=== PATIENT | male | born 1935 | race Caucasian/White ===

== ENCOUNTER → 2016-10-28 | Outpatient (CLI) | payer MEDICARE ==
[2016-10-28 10:56] LABS: ALT 27 U/L (21-72); AST 28 U/L (17-59); Alkaline Phosphatase 66 U/L (38-126); Anion Gap 7 mmol/L; Blood Urea Nitrogen 33 mg/dL (9-20); Calcium 8.9 mg/dL (8.4-10.2); Carbon Dioxide 27 mmol/L (22-30); Chloride 105 mmol/L (98-107); Cholesterol 140 mg/dL (<200); Glucose 79 mg/dL (74-99); HDL Cholesterol 52 mg/dL (40-60); Non-African American GFR(MDRD) >60 (>60 ml/min/1.73 sqM); Potassium 4.5 mmol/L (3.5-5.1); Sodium 139 mmol/L (137-145); Total Bilirubin 0.8 mg/dL (0.2-1.3); Total Protein 6.5 g/dL (6.3-8.2); Triglycerides 86 mg/dL (<150)
== END | disposition home or self-care (01) ==
LOC: LABWHC1 08:47
PROVIDERS: ATTEND Internal Medicine Interventional Cardiology
DX: E78.2 Mixed hyperlipidemia (principal)
CPT/HCPCS: 36415; 80053; 80061; 84443

== ENCOUNTER → 2017-03-30 | Outpatient (CLI) | payer MEDICARE ==
[2017-03-30 10:04] LABS: ALT 23 U/L (21-72); AST 22 U/L (17-59); Alkaline Phosphatase 66 U/L (38-126); Anion Gap 8 mmol/L; Blood Urea Nitrogen 25 mg/dL (9-20); Calcium 8.7 mg/dL (8.4-10.2); Carbon Dioxide 27 mmol/L (22-30); Chloride 106 mmol/L (98-107); Cholesterol 135 mg/dL (<200); Glucose 79 mg/dL (74-99); HDL Cholesterol 53 mg/dL (40-60); Non-African American GFR(MDRD) >60 (>60 ml/min/1.73 sqM); Sodium 141 mmol/L (137-145); Total Bilirubin 0.7 mg/dL (0.2-1.3); Total Protein 5.9 g/dL (6.3-8.2)
== END | disposition home or self-care (01) ==
LOC: LABWHC1 08:36
PROVIDERS: ATTEND Internal Medicine Interventional Cardiology
DX: E78.2 Mixed hyperlipidemia (principal)
CPT/HCPCS: 36415; 80053; 80061

== ENCOUNTER → 2017-10-26 | Outpatient (CLI) | payer MEDICARE ==
[2017-10-26 11:01] LABS: Albumin 3.5 g/dL (3.5-5.0); Calcium 8.7 mg/dL (8.4-10.2); Potassium 4.1 mmol/L (3.5-5.1); Total Bilirubin 0.8 mg/dL (0.2-1.3); Total Protein 5.5 g/dL (6.3-8.2)
== END | disposition home or self-care (01) ==
LOC: LABWHC1 09:50
PROVIDERS: ATTEND Internal Medicine Interventional Cardiology
DX: I25.5 Ischemic cardiomyopathy (principal); E78.2 Mixed hyperlipidemia
CPT/HCPCS: 36415; 80053; 80061; 84443

== ENCOUNTER → 2018-03-17 | Outpatient (CLI) | payer MEDICARE ==
[2018-03-17 12:06] LABS: Albumin 3.7 g/dL (3.5-5.0); Calcium 8.9 mg/dL (8.4-10.2); Potassium 4.6 mmol/L (3.5-5.1); Total Bilirubin 0.9 mg/dL (0.2-1.3); Total Protein 6.2 g/dL (6.3-8.2)
== END | disposition home or self-care (01) ==
LOC: LABWHC1 09:40
PROVIDERS: ATTEND Internal Medicine Interventional Cardiology
DX: E78.2 Mixed hyperlipidemia (principal)
CPT/HCPCS: 36415; 80053; 80061

== ENCOUNTER → 2018-10-25 | Outpatient (CLI) | payer MEDICARE | END | disposition home or self-care (01) | LOC: LABWHC1 09:14 | PROVIDERS: ATTEND Internal Medicine Interventional Cardiology | DX: E78.2 Mixed hyperlipidemia (principal) | CPT/HCPCS: 36415; 80061; 84450; 84460 ==

== ENCOUNTER → 2019-04-20 | Outpatient (CLI) | payer MEDICARE ==
--- NOTE | 2019-04-20 11:50 | XR ---
EXAMINATION TYPE: XR chest 2V DATE OF EXAM: 04/20/2019 COMPARISON: 02/01/2011 TECHNIQUE: PA and lateral views submitted. HISTORY: Cough FINDINGS: The lungs are clear and there is no pneumothorax, pleural effusion, or focal pneumonia. Surgical ch anges are seen and there is a double lead pacemaker. No overt failure. Arthropathy shoulders. Degener ative change of the spine. Suggestion of coronary artery stenting correlate clinically. Partial event ration right hemidiaphragm. IMPRESSION: 1. No acute process.
== END | disposition home or self-care (01) ==
LOC: RADXRMAIN 11:19
PROVIDERS: ATTEND Internal Medicine
DX: R05 Cough (principal)
CPT/HCPCS: 71046

== ENCOUNTER → 2019-05-02 | Outpatient (CLI) | payer MEDICARE ==
--- NOTE | 2019-05-02 13:29 | CT ---
EXAMINATION TYPE: CT sinus wo con DATE OF EXAM: 05/02/2019 COMPARISON: HISTORY: Chronic sinusitis, drainage, pressure CT DLP: 703.6 mGycm. Automated Exposure Control for Dose Reduction was Utilized. TECHNIQUE: CT scan of the sinuses is performed without contrast, axial images are obtained, coronal r eformatted images are also reviewed. FINDINGS: The paranasal sinuses are remarkable for extensive inflammatory change in the bilateral ma xillary sinus, ethmoid air cells, sphenoid sinus and frontal sinus. Abnormal soft tissue present at t he level of the ostiomeatal units bilaterally possible polyp along the middle terminated on the left measuring approximately 18 mm posteriorly as well as possibly anteriorly along the inferior turbinate measuring 12 mm, possibly the posterior aspect of the middle turbinate on the right towards the nasa l septum. Visualized portion of mastoid air cells show no abnormal opacification. The globes are intact bilate rally. Auditory ossicles show symmetric appearance. Bone mineralization is normal. 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
== END | disposition home or self-care (01) ==
LOC: RADCTMAIN 13:01
PROVIDERS: ATTEND Otolaryngology
DX: J32.4 Chronic pansinusitis (principal)
CPT/HCPCS: 70486

== ENCOUNTER → 2019-12-11 | Outpatient (CLI) | payer MEDICARE ==
[2019-12-11 17:53] LABS: African American GFR (CKD) 58.5 (60.0-200.0); Albumin 4.1 g/dL (3.80-4.90); Albumin/Globulin Ratio 2.41 (1.60-3.17); Anion Gap 6.3 mmol/L (4.00-12.00); BUN/Creat Ratio 20.77 Ratio (12.00-20.00); Calcium 8.8 mg/dL (8.7-10.3); Carbon Dioxide 26.7 mmol/L (21.6-31.8); Chol/HDL Ratio 2.57; Globulin 1.7 g/dL (1.6-3.3); Non-African American GFR(CKD) 50.5 (60.0-200.0); Potassium 4.5 mmol/L (3.5-5.5); Total Bilirubin 0.8 mg/dL (0.3-1.2); Total Protein 5.8 g/dL (6.2-8.2)
== END | disposition home or self-care (01) ==
LOC: LABWHC1 08:52
PROVIDERS: ATTEND Internal Medicine Interventional Cardiology
DX: E78.2 Mixed hyperlipidemia (principal)
CPT/HCPCS: 36415; 80053; 80061

== ENCOUNTER → 2020-11-04 | Outpatient (CLI) | payer MEDICARE ==
[2020-11-04 18:19] LABS: Albumin 3.9 g/dL (3.80-4.90); Albumin/Globulin Ratio 2.05 (1.60-3.17); Anion Gap 7.5 mmol/L (4.00-12.00); BUN/Creat Ratio 22.5 Ratio (12.00-20.00); Calcium 8.6 mg/dL (8.7-10.3); Carbon Dioxide 26.5 mmol/L (21.6-31.8); Chol/HDL Ratio 2.81; Globulin 1.9 g/dL (1.6-3.3); LDL Cholesterol,Calculated 68.8 mg/dL (0.0-131.0); Non-African American GFR(CKD) 55.2 (60.0-200.0); Potassium 4.3 mmol/L (3.5-5.5); Total Bilirubin 0.9 mg/dL (0.2-1.2); Total Protein 5.8 g/dL (6.2-8.2); VLDL Calculation 18.2 mg/dL (5.00-40.00)
== END | disposition home or self-care (01) ==
LOC: LABWHC1 09:08
PROVIDERS: ATTEND Internal Medicine Interventional Cardiology
DX: E78.2 Mixed hyperlipidemia (principal)
CPT/HCPCS: 36415; 80053; 80061

== ENCOUNTER 2020-11-19 07:03 | Emergency (ER) | payer MEDICARE ==
[2020-11-19 07:18] VITALS: RESP 18; TEMP 97.8
--- NOTE | 2020-11-19 08:12 | ED ---
General Adult HPI - General Chief complaint: Abdominal Pain Stated complaint: Constipation Time Seen by Provider: 11/19/20 07:10 Source: patient, family, RN notes reviewed, old records reviewed Mode of arrival: ambulatory - History of Present Illness Initial comments: This is an 85-year-old male who presents emergency Department complaining that he has not had a bowel movement in 5 days. Patient states that 3 days prior to that he had only small bowel. Patient states he does not drink water. Patient states he has already been to another emergency department they did not find anything. Patient states he eats every day but does not eat a lot. Patient denies any abdominal pain. Patient denies any fever chills or cough. Patient denies any difficulty breathing or chest pain. Patient denies any abdominal pain. - Related Data Home Medications Medication Instructions Recorded Confirmed Acetaminophen Tab [Tylenol Tab] 1,000 mg PO Q6HR PRN 11/19/20 11/19/20 Amiodarone HCl [Pacerone] 100 mg PO DAILY 11/19/20 11/19/20 Apixaban [Eliquis] 5 mg PO BID 11/19/20 11/19/20 Aspirin EC [Ecotrin Low Dose] 81 mg PO DAILY 11/19/20 11/19/20 Atorvastatin [Lipitor] 40 mg PO DAILY 11/19/20 11/19/20 Furosemide [Lasix] 20 mg PO DAILY 11/19/20 11/19/20 Glucosam/Wolfgang-Msm1/C/Balta/Bosw 1 tab PO DAILY 11/19/20 11/19/20 [Glucosamine-Chondroitin Tablet] Ipratropium [place] 0.06%Nasal 1 spray EA NOSTRIL DAILY 11/19/20 11/19/20 [Atrovent Nasal 0.06%] Isosorbide Mononitrate ER [Imdur] 60 mg PO BID 11/19/20 11/19/20 Quinapril HCl [Accupril] 20 mg PO DAILY 11/19/20 11/19/20 carvediloL [Coreg] 6.25 mg PO BID 11/19/20 11/19/20 Allergies Allergy/AdvReac Type Severity Reaction Status Date / Time No Known Allergies Allergy Verified 11/19/20 08:34 Review of Systems ROS Statement: Those systems with pertinent positive or pertinent negative responses have been documented in the HPI. ROS Other: All systems not noted in ROS Statement are negative. Past Medical History Past Medical History: Hyperlipidemia, Myocardial Infarction ([place]) History of Any Multi-Drug Resistant Organisms: None Reported Past Surgical History: Coronary Bypass/CABG, Heart Catheterization With Stent, Hernia Repair, Joint Replacement Additional Past Surgical History / Comment(s): Pacer/AICD Past Psychological History: No Psychological Hx Reported Smoking Status: Former smoker Past Alcohol Use History: Rare Past Drug Use History: None Reported General Exam - General Exam Comments Initial Comments: GENERAL: Patient is well-developed and well-nourished. Patient is nontoxic and well- hydrated and is in mild distress. ENT: Neck is soft and supple. No significant lymphadenopathy is noted. Oropharynx is clear. Moist mucous membranes. Neck has full range of motion without eliciting any pain. EYES: The sclera were anicteric and conjunctiva were pink and moist. Extraocular movements were intact and pupils were equal round and reactive to light. Eyeli ds were unremarkable. ABDOMEN: Soft and nontender with normal bowel sounds. SKIN: Skin is clear with no lesions or rashes and otherwise unremarkable. NEUROLOGIC: Patient is alert and oriented x3. Cranial nerves II through XII are grossly intact. Motor and sensory are also intact. Normal speech, volume and content. Symmetrical smile. MUSCULOSKELETAL: Normal extremities with adequate strength and full range of motion. No lower extremity swelling or edema. No calf tenderness. LYMPHATICS: No significant lymphadenopathy is noted PSYCHIATRIC: Normal psychiatric evaluation. Course Vital Signs 11/19/20 07:12 Temperature 97.8 F Pulse Rate 60 Respiratory 18 Rate Blood Pressure 130/75 O2 Sat by Pulse 98 Oximetry Medical Decision Making - Medical Decision Making X-ray of the abdomen shows no acute findings. New. Patient to get an enema emergency Department had decent results was feeling better and willing to go home at this point. Disposition Clinical Impression: Constipation Disposition: HOME SELF-CARE Condition: Good Instructions (If sedation given, give patient instructions): Constipation (ED), High Fiber Diet (ED) Additional Instructions: Patient needs to buy by [employer] and take it twice a day and increase his water intake. Is patient prescribed a controlled substance at d/c from ED?: No Referrals: None,Stated [Primary Care Provider] - 1-2 days Time of Disposition: 09:40
--- NOTE | 2020-11-19 08:45 | XR ---
KUB HISTORY: Constipation Frontal KUB a single image, no comparisons There is a scoliotic curvature to the spine. Postop change noted to the left hip. Right hip shows ost eoarthritic change. Intracardiac defibrillator leads are noted incidentally. There is retained fecal debris noted especially in the right upper quadrant. No evident pneumoperitoneum or bowel obstruction . Vascular calcifications are suspected within the pelvis. The heart may be enlarged. IMPRESSION: Nonspecific findings as described.
[2020-11-19 09:48] VITALS: BP 131/79; PULSE 61
== END 2020-11-19 09:48 | disposition home or self-care (01) ==
LOC: EC 07:03
DX: K59.00 Constipation, unspecified (principal); E78.5 Hyperlipidemia, unspecified; I25.2 Old myocardial infarction; Z95.1 Presence of aortocoronary bypass graft; Z95.5 Presence of coronary angioplasty implant and graft; Z87.891 Personal history of nicotine dependence
CPT/HCPCS: 74018; 99283

== ENCOUNTER 2021-01-09 07:35 | Emergency (ER) | payer MEDICARE ==
--- NOTE | 2021-01-09 08:26 | ED ---
General Adult HPI - General Chief complaint: Abdominal Pain Stated complaint: constipation Time Seen by Provider: 01/09/21 07:38 Source: patient, RN notes reviewed, old records reviewed Mode of arrival: ambulatory Limitations: no limitations - History of Present Illness Initial comments: 85-year-old male presenting for evaluation of decreased bowel movements. He's had an ongoing issue for the past 2 months. He been seen in the emergency department given an enema approximately 8 weeks ago. He states he's been taking Metamucil and stool softener at home with out significant improvement. He had seen his primary care physician who recommended he continue this treatment. He denies rectal bleeding. He states his last bowel movement was about 4 days ago. He states they have been quite intermittent. He denies vomiting. Denies abdominal pain. - Related Data Home Medications Medication Instructions Recorded Confirmed Acetaminophen Tab [Tylenol Tab] 1,000 mg PO Q6HR PRN 11/19/20 11/19/20 Amiodarone HCl [Pacerone] 100 mg PO DAILY 11/19/20 11/19/20 Apixaban [Eliquis] 5 mg PO BID 11/19/20 11/19/20 Aspirin EC [Ecotrin Low Dose] 81 mg PO DAILY 11/19/20 11/19/20 Atorvastatin [Lipitor] 40 mg PO DAILY 11/19/20 11/19/20 Furosemide [Lasix] 20 mg PO DAILY 11/19/20 11/19/20 Glucosam/Wolfgang-Msm1/C/Balta/Bosw 1 tab PO DAILY 11/19/20 11/19/20 [Glucosamine-Chondroitin Tablet] Ipratropium [place] 0.06%Nasal 1 spray EA NOSTRIL DAILY 11/19/20 11/19/20 [Atrovent Nasal 0.06%] Isosorbide Mononitrate ER [Imdur] 60 mg PO BID 11/19/20 11/19/20 Quinapril HCl [Accupril] 20 mg PO DAILY 11/19/20 11/19/20 carvediloL [Coreg] 6.25 mg PO BID 11/19/20 11/19/20 Allergies Allergy/AdvReac Type Severity Reaction Status Date / Time No Known Allergies Allergy Verified 01/09/21 07:39 Review of Systems ROS Statement: Those systems with pertinent positive or pertinent negative responses have been documented in the HPI. ROS Other: All systems not noted in ROS Statement are negative. Past Medical History Past Medical History: Hyperlipidemia, Myocardial Infarction ([place]) History of Any Multi-Drug Resistant Organisms: None Reported Past Surgical History: Coronary Bypass/CABG, Heart Catheterization With Stent, Hernia Repair, Joint Replacement Additional Past Surgical History / Comment(s): Pacer/AICD Past Psychological History: No Psychological Hx Reported Smoking Status: Former smoker Past Alcohol Use History: Rare Past Drug Use History: None Reported General Exam Limitations: no limitations General appearance: alert, in no apparent distress Head exam: Present: atraumatic, normocephalic Eye exam: Present: normal appearance, PERRL ENT exam: Present: normal exam Neck exam: Present: normal inspection. Absent: tenderness, meningismus Respiratory exam: Present: normal lung sounds bilaterally. Absent: respiratory distress, wheezes Cardiovascular Exam: Present: regular rate, normal rhythm GI/Abdominal exam: Present: soft. Absent: distended, tenderness, guarding, rebound Extremities exam: Present: normal inspection, normal capillary refill. Absent: pedal edema Neurological exam: Present: alert, oriented X3, CN II-XII intact, normal gait. Absent: motor sensory deficit Psychiatric exam: Present: normal affect, normal mood Skin exam: Present: warm, dry, intact. Absent: cyanosis, diaphoretic Course Vital Signs 01/09/21 07:37 Temperature 97.8 F Pulse Rate 62 Respiratory 20 Rate Blood Pressure 144/83 O2 Sat by Pulse 99 Oximetry Medical Decision Making - Medical Decision Making 85-year-old male with decreased bowel movements, no abdominal pain. He has no abdominal tenderness on exam. His hemodynamics are stable. He did receive an enema in the emergency department with a small stool output. X-ray showing some stool burden in the right hemicolon without obvious obstruction or intraperitoneal free air. Patient will be given magnesium citrate. He is given return parameters. Additionally I feel will be beneficial for this patient to follow up with gastroenterology. Disposition Clinical Impression: Constipation Disposition: HOME SELF-CARE Condition: Good Instructions (If sedation given, give patient instructions): Constipation (ED) Is patient prescribed a controlled substance at d/c from ED?: No Referrals: None,Stated [REFERRING] - 1-2 days Chuckie Chase MD [STAFF PHYSICIAN] - 1-2 days Time of Disposition: 09:39
--- NOTE | 2021-01-09 08:36 | XR ---
EXAMINATION TYPE: XR KUB DATE OF EXAM: 01/09/2021 8:24 AM CLINICAL HISTORY: Constipation x4-5 days TECHNIQUE: Single supine KUB image of the abdomen is obtained. COMPARISON: 11/19/2020. FINDINGS: Scattered gas is seen in non-distended small bowel loops. Gas and fecal material is seen in non-distended colon. There is S-shaped scoliosis with degenerative changes in the bones and incomple tely visualized left total hip prosthesis. IMPRESSION: Overall nonobstructive bowel gas pattern.
[2021-01-09] MEDS ORDERED: MAGNESIUM CITRATE 296 ML BOTTLE PO ONE (09:29)
[2021-01-09 09:49] VITALS: BP 141/74; PULSE 78; RESP 16; TEMP 98.2
== END 2021-01-09 09:49 | disposition home or self-care (01) ==
LOC: EC 07:35
DX: K59.00 Constipation, unspecified (principal); Z87.891 Personal history of nicotine dependence; I25.2 Old myocardial infarction; I25.810 Atherosclerosis of coronary artery bypass graft(s) without angina pectoris; E78.5 Hyperlipidemia, unspecified; Z79.82 Long term (current) use of aspirin; Z79.899 Other long term (current) drug therapy; Z95.1 Presence of aortocoronary bypass graft; Z95.810 Presence of automatic (implantable) cardiac defibrillator
CPT/HCPCS: 74018; 99284

== ENCOUNTER → 2021-04-30 | Outpatient (CLI) | payer MEDICARE ==
[2021-04-30 16:47] LABS: ALT 13 U/L (10-49); AST 20 U/L (14-35); African American GFR (CKD) 58.1 (60.0-200.0); Albumin 4.1 g/dL (3.8-4.9); Albumin/Globulin Ratio 2.41 (1.60-3.17); Alkaline Phosphatase 79 U/L (41-126); Calcium 8.8 mg/dL (8.7-10.3); Carbon Dioxide 26.3 mmol/L (21.6-31.8); Chloride 107 mmol/L (96-109); Chol/HDL Ratio 2.21 Ratio; Globulin 1.7 g/dL (1.6-3.3); Glucose 90 mg/dL (70-110); LDL Cholesterol,Calculated 58.2 mg/dL (0.0-131.0); Non-African American GFR(CKD) 50.1 (60.0-200.0); Potassium 4.5 mmol/L (3.5-5.5); Sodium 142 mmol/L (135-145); Total Protein 5.8 g/dL (6.2-8.2); VLDL Calculation 13.36 mg/dL (5.00-40.00)
== END | disposition home or self-care (01) ==
LOC: LABWHC1 08:31
PROVIDERS: ATTEND Internal Medicine Interventional Cardiology
DX: E78.2 Mixed hyperlipidemia (principal)
CPT/HCPCS: 36415; 80053; 80061; 84443

== ENCOUNTER 2021-10-17 22:10 | Emergency (ER) | payer MEDICARE ==
[2021-10-17 22:35] VITALS: PULSE 60; TEMP 97.6
--- NOTE | 2021-10-17 22:40 | ED ---
General Adult HPI - General Chief complaint: Nausea/Vomiting/Diarrhea Stated complaint: Weakness Time Seen by Provider: 10/17/21 22:16 Source: patient, EMS Mode of arrival: EMS Limitations: no limitations - History of Present Illness Initial comments: This patient is an 86-year-old man who presents to have evaluation for generalized weakness and fatigue. The patient states that he was in his usual state of health until probably just around noon today. The patient states that since that time he has been having generalized weakness and fatigue. He denies having any pain. No dyspnea. No infectious symptoms, including no fever or chills, congestion, sore throat, cough. No change in bowel movements or urination. There is no focal weakness. -: hour(s) Severity scale (1-10): 0 Improves with: none Worsens with: none Associated Symptoms: weakness Treatments Prior to Arrival: none - Related Data Home Medications Medication Instructions Recorded Confirmed Acetaminophen Tab [Tylenol Tab] 1,000 mg PO Q6HR PRN 11/19/20 11/19/20 Amiodarone HCl [Pacerone] 100 mg PO DAILY 11/19/20 11/19/20 Apixaban [Eliquis] 5 mg PO BID 11/19/20 11/19/20 Aspirin EC [Ecotrin Low Dose] 81 mg PO DAILY 11/19/20 11/19/20 Atorvastatin [Lipitor] 40 mg PO DAILY 11/19/20 11/19/20 Furosemide [Lasix] 20 mg PO DAILY 11/19/20 11/19/20 Glucosam/Wolfgang-Msm1/C/Balta/Bosw 1 tab PO DAILY 11/19/20 11/19/20 [Glucosamine-Chondroitin Tablet] Ipratropium [place] 0.06%Nasal 1 spray EA NOSTRIL DAILY 11/19/20 11/19/20 [Atrovent Nasal 0.06%] Isosorbide Mononitrate ER [Imdur] 60 mg PO BID 11/19/20 11/19/20 Quinapril HCl [Accupril] 20 mg PO DAILY 11/19/20 11/19/20 carvediloL [Coreg] 6.25 mg PO BID 11/19/20 11/19/20 Allergies Allergy/AdvReac Type Severity Reaction Status Date / Time No Known Allergies Allergy Verified 01/09/21 07:39 Review of Systems ROS Statement: Those systems with pertinent positive or pertinent negative responses have been documented in the HPI. ROS Other: All systems not noted in ROS Statement are negative. Constitutional: Reports: weakness. Denies: fever, chills Eyes: Denies: vision change ENT: Denies: throat pain, congestion Respiratory: Denies: cough, dyspnea Cardiovascular: Denies: chest pain, palpitations Gastrointestinal: Denies: abdominal pain, vomiting, diarrhea Genitourinary: Denies: dysuria, hematuria Musculoskeletal: Denies: back pain Skin: Denies: rash Neurological: Denies: headache, weakness, numbness, paresthesias, confusion Past Medical History Past Medical History: Hyperlipidemia, Myocardial Infarction ([place]) History of Any Multi-Drug Resistant Organisms: None Reported Past Surgical History: Coronary Bypass/CABG, Heart Catheterization With Stent, Hernia Repair, Joint Replacement Additional Past Surgical History / Comment(s): Pacer/AICD Past Psychological History: No Psychological Hx Reported Smoking Status: Former smoker Past Alcohol Use History: Rare Past Drug Use History: None Reported General Exam Limitations: no limitations General appearance: alert, in no apparent distress Head exam: Present: atraumatic, normocephalic Eye exam: Present: normal appearance. Absent: scleral icterus, conjunctival injection ENT exam: Present: normal oropharynx Neck exam: Present: normal inspection, full ROM Respiratory exam: Present: normal lung sounds bilaterally. Absent: respiratory distress, wheezes, rales, rhonchi, stridor Cardiovascular Exam: Present: regular rate, normal rhythm, normal heart sounds. Absent: systolic murmur, diastolic murmur, rubs, gallop GI/Abdominal exam: Present: soft. Absent: distended, tenderness, guarding, rebound, rigid, mass Extremities exam: Present: normal inspection, normal capillary refill. Absent: pedal edema, calf tenderness Back exam: Present: normal inspection. Absent: CVA tenderness (R), CVA tenderness (L) Neurological exam: Present: alert, oriented X3, CN II-XII intact. Absent: motor sensory deficit Skin exam: Present: warm, dry, intact, normal color. Absent: rash Course Vital Signs 10/17/21 10/18/21 10/18/21 22:16 00:32 02:05 Temperature 97.6 F Pulse Rate 60 60 60 Respiratory 16 18 18 Rate Blood Pressure 141/87 125/61 125/63 O2 Sat by Pulse 96 97 96 Oximetry EKG Findings - EKG Comments: EKG Findings:: Atrial Paced rhythm, rate 60 bpm - EKG Results: EKG: interpreted by ERMD - Blocks, [place], Hypertrophy, ST Abn: AV and intraventricular conduction: right bundle branch block (fixed/intermittent, complete/incomplete) QRS axis and voltage: left axis deviation (-30 to -90) Medical Decision Making - Lab Data Result diagrams: 10/17/21 23:23 10/17/21 23:23 Lab Results 10/17/21 10/17/21 10/17/21 Range/Units 23:23 23:23 23:23 WBC 5.6 (3.8-10.6) k/uL RBC 3.54 L (4.30-5.90) m/uL Hgb 11.1 L (13.0-17.5) gm/dL Hct 35.3 L (39.0-53.0) % MCV 99.9 (80.0-100.0) fL MCH 31.4 (25.0-35.0) pg MCHC 31.4 (31.0-37.0) g/dL RDW 13.6 (11.5-15.5) % Plt Count 140 L (150-450) k/uL MPV 8.6 Neutrophils % 68 % Lymphocytes % 21 % Monocytes % 7 % Eosinophils % 2 % Basophils % 1 % Neutrophils # 3.8 (1.3-7.7) k/uL Lymphocytes # 1.2 (1.0-4.8) k/uL Monocytes # 0.4 (0-1.0) k/uL Eosinophils # 0.1 (0-0.7) k/uL Basophils # 0.0 (0-0.2) k/uL PT 12.5 H (9.0-12.0) sec INR 1.2 H (<1.2) APTT 29.7 (22.0-30.0) sec Sodium 137 (137-145) mmol/L Potassium 4.4 (3.5-5.1) mmol/L Chloride 108 H (98-107) mmol/L Carbon Dioxide 27 (22-30) mmol/L Anion Gap 2 mmol/L BUN 27 H (9-20) mg/dL Creatinine 1.19 (0.66-1.25) mg/dL Est GFR (CKD-EPI)AfAm 64 (>60 ml/min/1.73 sqM) Est GFR (CKD-EPI)NonAf 55 (>60 ml/min/1.73 sqM) Glucose 90 (74-99) mg/dL Plasma Lactic Acid Ceasar (0.7-2.0) mmol/L Calcium 8.1 L (8.4-10.2) mg/dL Phosphorus 3.0 (2.5-4.5) mg/dL Magnesium 2.1 (1.6-2.3) mg/dL Total Bilirubin 0.5 (0.2-1.3) mg/dL AST 87 H (17-59) U/L ALT 53 H (4-49) U/L Alkaline Phosphatase 85 (38-126) U/L Troponin I (0.000-0.034) ng/mL NT-Pro-B Natriuret Pep pg/mL Total Protein 5.4 L (6.3-8.2) g/dL Albumin 3.1 L (3.5-5.0) g/dL Urine Color Urine Appearance (Clear) Urine pH (5.0-8.0) Ur Specific [place] (1.001-1.035) Urine Protein (Negative) Urine Glucose (UA) (Negative) Urine Ketones (Negative) Urine Blood (Negative) Urine Nitrite (Negative) Urine Bilirubin (Negative) Urine Urobilinogen (<2.0) mg/dL Ur Leukocyte Esterase (Negative) 10/17/21 10/17/21 10/17/21 Range/Units 23:23 23:23 23:23 WBC (3.8-10.6) k/uL RBC (4.30-5.90) m/uL Hgb (13.0-17.5) gm/dL Hct (39.0-53.0) % MCV (80.0-100.0) fL MCH (25.0-35.0) pg MCHC (31.0-37.0) g/dL RDW (11.5-15.5) % Plt Count (150-450) k/uL MPV Neutrophils % % Lymphocytes % % Monocytes % % Eosinophils % % Basophils % % Neutrophils # (1.3-7.7) k/uL Lymphocytes # (1.0-4.8) k/uL Monocytes # (0-1.0) k/uL Eosinophils # (0-0.7) k/uL Basophils # (0-0.2) k/uL PT (9.0-12.0) sec INR (<1.2) APTT (22.0-30.0) sec Sodium (137-145) mmol/L Potassium (3.5-5.1) mmol/L Chloride (98-107) mmol/L Carbon Dioxide (22-30) mmol/L Anion Gap mmol/L BUN (9-20) mg/dL Creatinine (0.66-1.25) mg/dL Est GFR (CKD-EPI)AfAm (>60 ml/min/1.73 sqM) Est GFR (CKD-EPI)NonAf (>60 ml/min/1.73 sqM) Glucose (74-99) mg/dL Plasma Lactic Acid Ceasar 0.8 (0.7-2.0) mmol/L Calcium (8.4-10.2) mg/dL Phosphorus (2.5-4.5) mg/dL Magnesium (1.6-2.3) mg/dL Total Bilirubin (0.2-1.3) mg/dL AST (17-59) U/L ALT (4-49) U/L Alkaline Phosphatase (38-126) U/L Troponin I <0.012 (0.000-0.034) ng/mL NT-Pro-B Natriuret Pep 2790 pg/mL Total Protein (6.3-8.2) g/dL Albumin (3.5-5.0) g/dL Urine Color Urine Appearance (Clear) Urine pH (5.0-8.0) Ur Specific [place] (1.001-1.035) Urine Protein (Negative) Urine Glucose (UA) (Negative) Urine Ketones (Negative) Urine Blood (Negative) Urine Nitrite (Negative) Urine Bilirubin (Negative) Urine Urobilinogen (<2.0) mg/dL Ur Leukocyte Esterase (Negative) 10/18/21 Range/Units 00:55 WBC (3.8-10.6) k/uL RBC (4.30-5.90) m/uL Hgb (13.0-17.5) gm/dL Hct (39.0-53.0) % MCV (80.0-100.0) fL MCH (25.0-35.0) pg MCHC (31.0-37.0) g/dL RDW (11.5-15.5) % Plt Count (150-450) k/uL MPV Neutrophils % % Lymphocytes % % Monocytes % % Eosinophils % % Basophils % % Neutrophils # (1.3-7.7) k/uL Lymphocytes # (1.0-4.8) k/uL Monocytes # (0-1.0) k/uL Eosinophils # (0-0.7) k/uL Basophils # (0-0.2) k/uL PT (9.0-12.0) sec INR (<1.2) APTT (22.0-30.0) sec Sodium (137-145) mmol/L Potassium (3.5-5.1) mmol/L Chloride (98-107) mmol/L Carbon Dioxide (22-30) mmol/L Anion Gap mmol/L BUN (9-20) mg/dL Creatinine (0.66-1.25) mg/dL Est GFR (CKD-EPI)AfAm (>60 ml/min/1.73 sqM) Est GFR (CKD-EPI)NonAf (>60 ml/min/1.73 sqM) Glucose (74-99) mg/dL Plasma Lactic Acid [place] (0.7-2.0) mmol/L Calcium (8.4-10.2) mg/dL Phosphorus (2.5-4.5) mg/dL Magnesium (1.6-2.3) mg/dL Total Bilirubin (0.2-1.3) mg/dL AST (17-59) U/L ALT (4-49) U/L Alkaline Phosphatase (38-126) U/L Troponin I (0.000-0.034) ng/mL NT-Pro-B Natriuret Pep pg/mL Total Protein (6.3-8.2) g/dL Albumin (3.5-5.0) g/dL Urine Color Yellow Urine Appearance Clear (Clear) Urine pH 6.5 (5.0-8.0) Ur Specific [place] 1.020 (1.001-1.035) Urine Protein Trace H (Negative) Urine Glucose (UA) Negative (Negative) Urine Ketones Negative (Negative) Urine Blood Negative (Negative) Urine Nitrite Negative (Negative) Urine Bilirubin Negative (Negative) Urine Urobilinogen <2.0 (<2.0) mg/dL Ur Leukocyte Esterase Negative (Negative) Disposition Clinical Impression: CHF (congestive heart failure) Disposition: HOME SELF-CARE Condition: Good Instructions (If sedation given, give patient instructions): Heart Failure ([place]) Is patient prescribed a controlled substance at d/c from ED?: No Referrals: Carlos Enrique Messer MD [Primary Care Provider] - 1-2 days
[2021-10-17 23:38] LABS: Basophils % (A) 1 %; Eosinophils # (A) 0.1 k/uL (0-0.7); Eosinophils % (A) 2 %; HCT 35.3 % (39.0-53.0); HGB 11.1 gm/dL (13.0-17.5); Lymphocytes # (A) 1.2 k/uL (1.0-4.8); Lymphocytes % (A) 21 %; MCH 31.4 pg (25.0-35.0); MCHC 31.4 g/dL (31.0-37.0); MCV 99.9 fL (80.0-100.0); Mean Platelet Volume 8.6; Monocytes # (A) 0.4 k/uL (0-1.0); Monocytes % (A) 7 %; Neutrophils # (A) 3.8 k/uL (1.3-7.7); Neutrophils % (A) 68 %; Platelet Count 140 k/uL (150-450); RBC 3.54 m/uL (4.30-5.90); RDW 13.6 % (11.5-15.5); WBC 5.6 k/uL (3.8-10.6)
[2021-10-17 23:46] LABS: INR 1.2 (<1.2); Partial Thromboplastin Time 29.7 sec (22.0-30.0); Prothrombin Time 12.5 sec (9.0-12.0)
[2021-10-17 23:55] LABS: Albumin 3.1 g/dL (3.5-5.0); Calcium 8.1 mg/dL (8.4-10.2); Magnesium 2.1 mg/dL (1.6-2.3); Potassium 4.4 mmol/L (3.5-5.1); Total Bilirubin 0.5 mg/dL (0.2-1.3); Total Protein 5.4 g/dL (6.3-8.2)
[2021-10-18 00:33] VITALS: RESP 18
--- NOTE | 2021-10-18 00:40 | XR ---
EXAM: XR Chest, 2 Views CLINICAL HISTORY: ITS.REASON XR Reason: Weakness TECHNIQUE: Frontal and lateral views of the chest. COMPARISON: Chest radiograph on 04/20/2019 FINDINGS: Hardware: None. Lungs/pleura: Mildly prominent lung markings. No focal consolidation. No pleural effusion or pneumothorax. Heart/mediastinum: Stable mild enlargement of the cardiac silhouette. Median sternotomy changes. Left-sided pacemaker/AICD. Soft tissues: Unremarkable. Bones: No acute fracture. Upper abdomen: Normal. IMPRESSION: Mildly prominent lung markings may represent pulmonary vasculature congestion versus infectious/inflammatory process.
[2021-10-18] MEDS ORDERED: FUROSEMIDE 10 MG/ML 4 ML VIAL IV STA (00:54)
[2021-10-18 01:09] LABS: Appearance,Urine Clear (Clear); Bilirubin,Urine Negative (Negative); Blood,Urine Negative (Negative); Color,Urine Yellow; Glucose,Urine (UA) Negative (Negative); Ketones,Urine Negative (Negative); Leukocyte Esterase,Urine Negative (Negative); Nitrite,Urine Negative (Negative); PH, Urine 6.5 (5.0-8.0); Protein,Urine Trace (Negative); Urobilinogen,Urine <2.0 mg/dL (<2.0)
[2021-10-18 02:07] VITALS: BP 125/63
== END 2021-10-18 02:52 | disposition home or self-care (01) ==
LOC: EC 22:10
DX: I50.9 Heart failure, unspecified (principal); I10 Essential (primary) hypertension; Z87.891 Personal history of nicotine dependence
CPT/HCPCS: 36415; 93005; 83880; 80053; 83605; 83735; 84100; 84484; 85025; 85610; 85730; 81003; 71046; 99285; 96374; J1940

== ENCOUNTER 2021-12-31 08:16 | Inpatient (IN) | payer MEDICARE ==
--- NOTE | 2021-12-31 08:30 | ED ---
General Adult HPI - General Chief complaint: Chest Pain Stated complaint: Chest Pain Time Seen by Provider: 12/31/21 08:23 Source: patient, EMS, RN notes reviewed, old records reviewed Mode of arrival: EMS Limitations: no limitations - History of Present Illness Initial comments: Patient is an 86-year-old male with past medical history remarkable for CAD with multiple cardiac stents, heart failure, AICD placement who presents emergency Department complaining of intermittent chest pain over the last few weeks. States that last night and this morning it was worse. Discusses substernal. Was 8 or 9 out of 10 at that time. Called EMS. Was administered 324 millions of aspirin as well as 3 subsequent nitro tablets with complete resolution of his chest pain. Patient denied any associated shortness of breath, abdominal pain, nausea, vomiting. Unknown palliative or provocative factors for his chest pain, however states that it seems that with minimal activity over the last 2 weeks he gets some level of pain. Denies any worsening activity. Denies any orthopnea, PND, lower extremity edema. Denies any fevers, chills, cough. Has no other ac titi complaints at this time. Follows up with Dr. Gonsalves of cardiology. - Related Data Home Medications Medication Instructions Recorded Confirmed Amiodarone HCl [Pacerone] 100 mg PO DAILY 11/19/20 12/31/21 Apixaban [Eliquis] 5 mg PO BID 11/19/20 12/31/21 Aspirin EC [Ecotrin Low Dose] 81 mg PO DAILY 11/19/20 12/31/21 Atorvastatin [Lipitor] 40 mg PO DAILY 11/19/20 12/31/21 Furosemide [Lasix] 20 mg PO DAILY 11/19/20 12/31/21 Glucosam/Wolfgang-Msm1/C/Balta/Bosw 1 tab PO DAILY 11/19/20 12/31/21 [Glucosamine-Chondroitin Tablet] Ipratropium [place] 0.06%Nasal 1 spray EA NOSTRIL DAILY 11/19/20 12/31/21 [Atrovent Nasal 0.06%] Isosorbide Mononitrate ER [Imdur] 60 mg PO BID 11/19/20 12/31/21 Quinapril HCl [Accupril] 20 mg PO DAILY 11/19/20 12/31/21 carvediloL [Coreg] 6.25 mg PO BID 11/19/20 12/31/21 [place]-3/Dha/Epa/Fish Oil [Fish Oil 1 cap PO DAILY 12/31/21 12/31/21 1,000 mg Softgel] Allergies Allergy/AdvReac Type Severity Reaction Status Date / Time No Known Allergies Allergy Verified 12/31/21 08:44 Review of Systems ROS Statement: Those systems with pertinent positive or pertinent negative responses have been documented in the HPI. Review of Systems: CONST: Denies fever EYES: Denies blurry vision ENT: Denies nasal congestion C/V: Endorses resolved chest pain. RESP: Denies shortness of breath GI: Denies abdominal pain : Denies dysuria SKIN: Denies rash. MSK: Denies joint pain. NEURO: Denies headache ROS Other: All systems not noted in ROS Statement are negative. Past Medical History Past Medical History: Hyperlipidemia, Myocardial Infarction ([place]) History of Any Multi-Drug Resistant Organisms: None Reported Past Surgical History: Coronary Bypass/CABG, Heart Catheterization With Stent, Hernia Repair, Joint Replacement Additional Past Surgical History / Comment(s): Pacer/AICD Past Psychological History: No Psychological Hx Reported Smoking Status: Former smoker Past Alcohol Use History: Rare Past Drug Use History: None Reported General Exam - General Exam Comments Initial Comments: General: Appears in no acute distress. HEAD: Normal with no signs of head trauma. EYES: PERRLA, EOMI, conjunctiva normal, no discharge. ENT: Hearing grossly intact, normal oropharynx. RESPIRATORY: Clear breath sounds bilaterally in the upper pate with slight decreased breath sounds that are bilateral and symmetric in lower lung pate.. No wheezes, rales, or rhonchi. Slightly hypoxic on room air to 92% improved on 2 L nasal cannula.. No increased work of breathing. C/V: Regular rate and rhythm. S1 and S2 auscultated, no edema, peripheral pulses 2+ and intact throughout ABD: Abd is soft, nontender, nondistended EXT: Normal range of motion, no obvious deformity SKIN: No rashes or lesions observed on exposed skin. NEURO: Alert and oriented x 4. Cranial nerves II-XII intact. No focal sensory or strength deficits. Limitations: no limitations Course Vital Signs 12/31/21 08:19 Temperature 97.7 F Pulse Rate 60 Respiratory 20 Rate Blood Pressure 138/78 O2 Sat by Pulse 94 L Oximetry Medical Decision Making - Medical Decision Making Based on patient's presentation and physical exam, I'm concerned for cardiopulmonary etiology for his current symptoms. Therefore cardiac workup will be obtained including troponin, EKG, chest x-ray and basic labs. Patient already received aspirin. He is pain-free at this time and does not require subsequent nitroglycerin tablets. I explained to him he is likely experiencing some level of unstable angina. With his heart history will be admitted to the hospital. He was in agreement with this plan. Vital signs are stable and within normal limits at this time. EKG shows no signs of acute ischemia.Chest x-ray revealed no acute cardio pulmonary process. Telemetry studies are remarkable for a slight AK I, minimal elevation in creatinine from his baseline of 1.4. I currently 1.59. Troponin is slightly elevated to 0.083. BNP is also slightly elevated to 2900, possibly secondary to heart failure. Chest x-ray shows no signs of heart failure. COVID-19 and flu are negative. I updated the patient regarding the findings. I would like to admit him to the hospital. Due to the chest pain prior to arrival which is still resolved at this time, I would like to initiate a heparin drip. He was in agreement this plan. Already received aspirin. We'll continue to trend the troponin have cardiology evaluate patient. Echo was ordered. I spoke with Dr. Messer who accepted the patient. Homans will be restarted. Vital signs remained within normal limits. - Lab Data Result diagrams: 12/31/21 08:31 12/31/21 08:31 Lab Results 12/31/21 12/31/21 12/31/21 Range/Units 08:31 08:31 08:31 WBC 8.3 (3.8-10.6) k/uL RBC 4.18 L (4.30-5.90) m/uL Hgb 14.0 (13.0-17.5) gm/dL Hct 41.6 (39.0-53.0) % MCV 99.5 (80.0-100.0) fL MCH 33.6 (25.0-35.0) pg MCHC 33.7 (31.0-37.0) g/dL RDW 13.5 (11.5-15.5) % Plt Count 152 (150-450) k/uL MPV 9.2 Neutrophils % 74 % Lymphocytes % 13 % Monocytes % 7 % Eosinophils % 5 % Basophils % 1 % Neutrophils # 6.1 (1.3-7.7) k/uL Lymphocytes # 1.0 (1.0-4.8) k/uL Monocytes # 0.6 (0-1.0) k/uL Eosinophils # 0.4 (0-0.7) k/uL Basophils # 0.0 (0-0.2) k/uL PT 11.5 (9.0-12.0) sec INR 1.1 (<1.2) APTT 26.4 (22.0-30.0) sec Sodium 139 (137-145) mmol/L Potassium 4.8 (3.5-5.1) mmol/L Chloride 110 H (98-107) mmol/L Carbon Dioxide 25 (22-30) mmol/L Anion Gap 4 mmol/L BUN 63 H (9-20) mg/dL Creatinine 1.59 H (0.66-1.25) mg/dL Est GFR (CKD-EPI)AfAm 45 (>60 ml/min/1.73 sqM) Est GFR (CKD-EPI)NonAf 39 (>60 ml/min/1.73 sqM) Glucose 117 H (74-99) mg/dL Calcium 8.4 (8.4-10.2) mg/dL Magnesium 2.3 (1.6-2.3) mg/dL Total Bilirubin 0.7 (0.2-1.3) mg/dL AST 29 (17-59) U/L ALT 14 (4-49) U/L Alkaline Phosphatase 73 (38-126) U/L Troponin I (0.000-0.034) ng/mL NT-Pro-B Natriuret Pep pg/mL Total Protein 6.3 (6.3-8.2) g/dL Albumin 3.7 (3.5-5.0) g/dL Coronavirus (PCR) (Not Detectd) Influenza Type A RNA (Not Detectd) Influenza Type B (PCR) (Not Detectd) 12/31/21 12/31/21 12/31/21 Range/Units 08:31 08:31 08:31 WBC (3.8-10.6) k/uL RBC (4.30-5.90) m/uL Hgb (13.0-17.5) gm/dL Hct (39.0-53.0) % MCV (80.0-100.0) fL MCH (25.0-35.0) pg MCHC (31.0-37.0) g/dL RDW (11.5-15.5) % Plt Count (150-450) k/uL MPV Neutrophils % % Lymphocytes % % Monocytes % % Eosinophils % % Basophils % % Neutrophils # (1.3-7.7) k/uL Lymphocytes # (1.0-4.8) k/uL Monocytes # (0-1.0) k/uL Eosinophils # (0-0.7) k/uL Basophils # (0-0.2) k/uL PT (9.0-12.0) sec INR (<1.2) APTT (22.0-30.0) sec Sodium (137-145) mmol/L Potassium (3.5-5.1) mmol/L Chloride (98-107) mmol/L Carbon Dioxide (22-30) mmol/L Anion Gap mmol/L BUN (9-20) mg/dL Creatinine (0.66-1.25) mg/dL Est GFR (CKD-EPI)AfAm (>60 ml/min/1.73 sqM) Est GFR (CKD-EPI)NonAf (>60 ml/min/1.73 sqM) Glucose (74-99) mg/dL Calcium (8.4-10.2) mg/dL Magnesium (1.6-2.3) mg/dL Total Bilirubin (0.2-1.3) mg/dL AST (17-59) U/L ALT (4-49) U/L Alkaline Phosphatase (38-126) U/L Troponin I 0.083 H* (0.000-0.034) ng/mL NT-Pro-B Natriuret Pep 2900 pg/mL Total Protein (6.3-8.2) g/dL Albumin (3.5-5.0) g/dL Coronavirus (PCR) (Not Detectd) Influenza Type A RNA Not Detected (Not Detectd) Influenza Type B (PCR) Not Detected (Not Detectd) 12/31/21 Range/Units 08:31 WBC (3.8-10.6) k/uL RBC (4.30-5.90) m/uL Hgb (13.0-17.5) gm/dL Hct (39.0-53.0) % MCV (80.0-100.0) fL MCH (25.0-35.0) pg MCHC (31.0-37.0) g/dL RDW (11.5-15.5) % Plt Count (150-450) k/uL MPV Neutrophils % % Lymphocytes % % Monocytes % % Eosinophils % % Basophils % % Neutrophils # (1.3-7.7) k/uL Lymphocytes # (1.0-4.8) k/uL Monocytes # (0-1.0) k/uL Eosinophils # (0-0.7) k/uL Basophils # (0-0.2) k/uL PT (9.0-12.0) sec INR (<1.2) APTT (22.0-30.0) sec Sodium (137-145) mmol/L Potassium (3.5-5.1) mmol/L Chloride (98-107) mmol/L Carbon Dioxide (22-30) mmol/L Anion Gap mmol/L BUN (9-20) mg/dL Creatinine (0.66-1.25) mg/dL Est GFR (CKD-EPI)AfAm (>60 ml/min/1.73 sqM) Est GFR (CKD-EPI)NonAf (>60 ml/min/1.73 sqM) Glucose (74-99) mg/dL Calcium (8.4-10.2) mg/dL Magnesium (1.6-2.3) mg/dL Total Bilirubin (0.2-1.3) mg/dL AST (17-59) U/L ALT (4-49) U/L Alkaline Phosphatase (38-126) U/L Troponin I (0.000-0.034) ng/mL NT-Pro-B Natriuret Pep pg/mL Total Protein (6.3-8.2) g/dL Albumin (3.5-5.0) g/dL Coronavirus (PCR) Not Detected (Not Detectd) Influenza Type A RNA (Not Detectd) Influenza Type B (PCR) (Not Detectd) - EKG Data -: EKG Interpreted by Me EKG Comments: 12-lead Electrocardiogram Interpretation Note EKG was reviewed and interpreted by myself. 12-lead ECG performed at 0824 is interpreted by me as revealing paced rhythm at a rate of 60 beats per minute. Left axis deviation. RI interval is 337 ms, QRS duration is 162 ms, QTc is 447 ms.. There were no acute ST or T wave abnormalities to suggest myocardial ischemia or injury. R wave progression across the precordium was satisfactory. By my interpretation this EKG is non-diagnostic for acute ischemia. EKG is unchanged from EKG obtained on 10/17/2021. Disposition Clinical Impression: NSTEMI (non-ST elevated myocardial infarction) Disposition: ADMITTED IP TO THIS HOSP Condition: Stable Time of Disposition: 10:25
--- NOTE | 2021-12-31 08:56 | XR ---
EXAMINATION TYPE: XR chest 2V DATE OF EXAM: 12/31/2021 COMPARISON: Chest x-ray October 18, 2021 HISTORY: Chest pain. TECHNIQUE: Frontal and lateral views of the chest are obtained. FINDINGS: There is mild chronic parenchymal change without suspicious focal air space opacity over p neumothorax seen. Stable small to tiny left pleural effusion or pleural thickening on lateral view St able cardiomegaly with dual-lead pacemaker/defibrillator along with atherosclerotic and ectatic thora cic aorta. Degenerative change bilateral shoulders. Overlying sternal wires redemonstrated. IMPRESSION: Chronic changes and cardiomegaly without new acute pulmonary process.
[2021-12-31 08:59] LABS: INR 1.1 (<1.2)
[2021-12-31 09:00] LABS: Partial Thromboplastin Time 26.4 sec (22.0-30.0); Prothrombin Time 11.5 sec (9.0-12.0)
[2021-12-31 09:04] LABS: Albumin 3.7 g/dL (3.5-5.0); Calcium 8.4 mg/dL (8.4-10.2); Total Bilirubin 0.7 mg/dL (0.2-1.3); Total Protein 6.3 g/dL (6.3-8.2)
[2021-12-31 09:05] LABS: Basophils % (A) 1 %; Eosinophils # (A) 0.4 k/uL (0-0.7); Eosinophils % (A) 5 %; HCT 41.6 % (39.0-53.0); Lymphocytes % (A) 13 %; MCH 33.6 pg (25.0-35.0); MCHC 33.7 g/dL (31.0-37.0); MCV 99.5 fL (80.0-100.0); Mean Platelet Volume 9.2; Monocytes # (A) 0.6 k/uL (0-1.0); Monocytes % (A) 7 %; Neutrophils # (A) 6.1 k/uL (1.3-7.7); Neutrophils % (A) 74 %; Platelet Count 152 k/uL (150-450); RBC 4.18 m/uL (4.30-5.90); RDW 13.5 % (11.5-15.5); WBC 8.3 k/uL (3.8-10.6)
[2021-12-31 09:06] LABS: Potassium 4.8 mmol/L (3.5-5.1)
[2021-12-31 09:07] LABS: Magnesium 2.3 mg/dL (1.6-2.3)
[2021-12-31] MEDS ORDERED: HEPARIN SODIUM 1,000 UN/ML (10ML VL) IV PRN (10:25)
[2021-12-31] MEDS ORDERED: HEPARIN SODIUM 1,000 UN/ML (10ML VL) IV ONE (10:25)
[2021-12-31] MEDS ORDERED: NALOXONE 0.4 MG/ML 1 ML VIAL IV PRN (12:04)
[2021-12-31] MEDS: HEPARIN SOD,PORK IN 0.45% NACL 25,000 UNIT in 0.45% NACL 1 250ML.BAG IV SCH (13:34)
--- NOTE | 2021-12-31 14:06 | P.HPIM ---
History of Present Illness H&P Date: 12/31/21 HISTORY OF PRESENT ILLNESS This is an 86-year-old male patient with past medical history of myocardial infarction, CABG, cardiac catheterization with stent placement,hypertension, hyperlipidemia,Pacemaker implantation. 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 Gonsalves. Patient gives history that he woke up at 6 AM To the bathroom and to the kitchen drinking some water that apparently went back to bed. He had developed chest pain in the midsternal area without radiation. He denies having any shortness of breath with this. He told his that he thought he was going to . He did not take any nitroglycerin sublingually because it is old greater than 10 years old. Patient then states that he had the pain the night before he went to bed but he thought it would get better. At the time of this evaluation, patient denies having any chest pain, no shortness of breath, no lightheadedness or dizziness. He denies having any heartburn. He last saw Dr. Gonsalves in early November. Patient was found to be afebrile, heart rate 60, blood pressure 138/78, pulse ox 94% on room air. EKG is in atrial paced rhythm. CBC is unremarkable. INR 1.1. Chloride 110 otherwise electrolytes are within normal limits. BUN 63 and creatinine 1.59. Liver function tests are normal. Magnesium 2.3. Troponin 0.083 and 0.012. ProBNP 2900. Coronavirus PCR negative, influenza A negative, influenza B negative. Chest x-ray reveals chronic changes and cardiomegaly without acute pulmonary process. Patient is seen today in the ER waiting for a bed on the cardiac stepdown unit, cardiology consult and Echocardiogram requested. REVIEW OF SYSTEMS Constitutional: No fever, no chills, no night sweats. No weight change. No weakness, fatigue or lethargy. No daytime sleepiness. EENT: No headache. No blurred vision or double vision, no loss of vision. No loss of Hearing, no ringing in the ears, no dizziness. No nasal drainage or congestion. No epistaxis. No sore throat. Lungs: No shortness of breath, cough, no sputum production. No wheezing. Cardiovascular: Reported chest pain-resolved, no lower extremity edema. No palpitations. No paroxysmal nocturnal dyspnea. No orthopnea. No lightheadedness or dizziness. No syncopal episodes. Abdominal: No abdominal pain. No nausea, vomiting. No diarrhea. No constipation. No bloody or tarry stools. No loss of appetite. Genitourinary: No dysuria, increased frequency, urgency. No urinary retention. Musculoskeletal: No myalgias. No muscle weakness, no gait dysfunction, no frequent falls. Chronic lumbar back pain. No neck pain. Integumentary: No wounds, no lesions. No rash or pruritus. No unusual bruising. No change in hair or nails. Neurologic: No aphasia. No facial droop. No change in mentation. No head injury. No headache. No paralysis. No paresthesia. Psychiatric: No depression. No anxiety. No mood swings. Endocrine: No abnormal blood sugars. No weight change. No excessive sweating or thirst. No cold intolerance. MEDICAL HISTORY Angina Benign prostatic hypertrophy Atherosclerotic heart disease Hyperlipidemia Osteoporosis with pathologic fracture SURGICAL HISTORY Appendectomy Left heart catheterization with PCI 3 2006, 2007, 2008 CABG 3 vessels in 1984 Cataract removal and intraocular lens implants Pacemaker/defibrillator Colonoscopy in 2011 SOCIAL HISTORY Patient smoked for about 20 years and quit in 1972. Patient drinks alcoholic about 2-3 times per week 1-2 drinks at a time. He lives at home with his . He uses a cane for ambulation. FAMILY HISTORY Father at age 61 from alcoholism. Mother at age 91 from old age. Patient has 3 sisters all . One sister from lung cancer, the other 2 from ovarian cancer. Patient has 2 daughters with no major medical problems. PHYSICAL EXAMINATION Gen: This is an 86-year-old male resting on the edge of the ER stretcher. He appears to be in no acute distress. Patient's and daughter are at bedside. HEENT: Head is atraumatic, normocephalic. Pupils equal, round. Sclerae is anicteric. NECK: Supple. No JVD. No lymphadenopathy. No thyromegaly. LUNGS: Clear to auscultation. No wheezes or rhonchi. No intercostal retractions. HEART: First heart sound is depressed, second heart sound is normal, 2/6 systolic ejection murmur at the left sternal border, no S3, no S4. ABDOMEN: Soft. Bowel sounds are present. No masses. No tenderness. EXTREMITIES: No pedal edema. No calf tenderness. NEUROLOGICAL: Patient is awake, alert and oriented x3. Cranial nerves 2 through 12 are grossly intact. ASSESSMENT AND PLAN 1. Chest pain rule out non-ST elevated myocardial infarction, repeat troponin, echocardiogram, cardiology consult, patient has been started on heparin drip. 2. History of coronary artery disease with previous CABG and stent placement. Continue aspirin 81 mg daily, Lipitor 40 mg daily, Coreg 6.25 mg twice daily. 3. Hyperlipidemia. Continue atorvastatin 40 mg daily. 4. Hypertension. Continue Coreg, Lasix 20 mg daily, lisinopril 20 mg daily. 5. Pacemaker implantation. 6. GI prophylaxis. Protonix 40 mg daily. 7. DVT prophylaxis. Heparin drip. Patient will be admitted to the hospital for a minimum of 2 night stay. DISCHARGE PLAN Return home. Impression and plan of care have been directed as dictated by the signing physician. Lyssa Gonzalez nurse practitioner acting as scribe for signing physician. Past Medical History Past Medical History: Hyperlipidemia, Myocardial Infarction ([place]) History of Any Multi-Drug Resistant Organisms: None Reported Past Surgical History: Coronary Bypass/CABG, Heart Catheterization With Stent, Hernia Repair, Joint Replacement Additional Past Surgical History / Comment(s): Pacer/AICD Past Psychological History: No Psychological Hx Reported Smoking Status: Former smoker Past Alcohol Use History: Rare Past Drug Use History: None Reported Medications and Allergies Home Medications Medication Instructions Recorded Confirmed Type Amiodarone HCl [Pacerone] 100 mg PO DAILY 11/19/20 12/31/21 History Apixaban [Eliquis] 5 mg PO BID 11/19/20 12/31/21 History Aspirin EC [Ecotrin Low Dose] 81 mg PO DAILY 11/19/20 12/31/21 History Atorvastatin [Lipitor] 40 mg PO DAILY 11/19/20 12/31/21 History Furosemide [Lasix] 20 mg PO DAILY 11/19/20 12/31/21 History Glucosam/Wolfgang-Msm1/C/Balta/Bosw 1 tab PO DAILY 11/19/20 12/31/21 History [Glucosamine-Chondroitin Tablet] Ipratropium [place] 0.06%Nasal 1 spray EA NOSTRIL DAILY 11/19/20 12/31/21 History [Atrovent Nasal 0.06%] Isosorbide Mononitrate ER [Imdur] 60 mg PO BID 06/02/21 07/14/22 History Quinapril HCl [Accupril] 20 mg PO DAILY 11/19/20 12/31/21 History carvediloL [Coreg] 6.25 mg PO BID 11/19/20 12/31/21 History [place]-3/Dha/Epa/Fish Oil [Fish Oil 1 cap PO DAILY 12/31/21 12/31/21 History 1,000 mg Softgel] Allergies Allergy/AdvReac Type Severity Reaction Status Date / Time No Known Allergies Allergy Verified 12/31/21 08:44 Physical Exam Vitals: Vital Signs Temp Pulse Resp BP Pulse Ox 12/31/21 08:19 97.7 F 60 20 138/78 94 L Intake and Output 12/30/21 12/31/21 12/31/21 22:59 06:59 14:59 Other: Weight 61.235 kg Results CBC & Chem 7: 01/01/22 03:38 01/01/22 03:38 Labs: Abnormal Lab Results - Last 24 Hours (Table) 12/31/21 12/31/21 12/31/21 Range/Units 08:31 08:31 08:31 RBC 4.18 L (4.30-5.90) m/uL Chloride 110 H (98-107) mmol/L BUN 63 H (9-20) mg/dL Creatinine 1.59 H (0.66-1.25) mg/dL Glucose 117 H (74-99) mg/dL Troponin I 0.083 H* (0.000-0.034) ng/mL
[2021-12-31] MEDS: carvediloL 6.25 MG TAB PO SCH (18:13)
[2021-12-31] MEDS: ISOSORBIDE MONONITRATE ER 60 MG TAB.ER.24H PO SCH (19:57)
[2022-01-01 04:45] LABS: Basophils % (A) 1 %; Eosinophils # (A) 0.3 k/uL (0-0.7); Eosinophils % (A) 4 %; HCT 38.5 % (39.0-53.0); HGB 12.8 gm/dL (13.0-17.5); Lymphocytes # (A) 1.3 k/uL (1.0-4.8); Lymphocytes % (A) 18 %; MCH 33.4 pg (25.0-35.0); MCHC 33.2 g/dL (31.0-37.0); MCV 100.4 fL (80.0-100.0); Mean Platelet Volume 9.1; Monocytes # (A) 0.6 k/uL (0-1.0); Monocytes % (A) 7 %; Neutrophils # (A) 5.1 k/uL (1.3-7.7); Neutrophils % (A) 68 %; Platelet Count 130 k/uL (150-450); RBC 3.83 m/uL (4.30-5.90); RDW 13.4 % (11.5-15.5); WBC 7.5 k/uL (3.8-10.6)
[2022-01-01 04:57] LABS: INR 1.1 (<1.2); Partial Thromboplastin Time 56.3 sec (22.0-30.0); Prothrombin Time 11.8 sec (9.0-12.0)
[2022-01-01 05:29] LABS: Calcium 8.2 mg/dL (8.4-10.2); Potassium 4.9 mmol/L (3.5-5.1)
[2022-01-01] MEDS: carvediloL 6.25 MG TAB PO SCH ×2 (06:37→16:12)
[2022-01-01] MEDS: PANTOPRAZOLE 40 MG TABLET PO SCH (06:37)
--- NOTE | 2022-01-01 07:32 | CA ---
Transthoracic Echo Report Name: Eamon Edouard Age: 86 Gender: M : 1935 Exam Date: 12/31/2021 13:58 Exam Location: [facility] Ht (in): 66 Wt (lb): 135 Ordering Physician: Adrian Hickey MD Attending/Referring Phys: Family Preservation Worker Hallie Reese RDCS Procedure CPT: Indications: nstemi Cardiac Hx: His od AICD, Triple bypass, [place] , and stenting. Technical Quality: Very technically difficult study Contrast 1: [place] Total Dose (mL): 1 Contrast 2: Total Dose (mL): MEASUREMENTS (Male / Female) Normal Values 2D ECHO LV Diastolic Diameter PLAX 5.7 cm 4.2 - 5.9 / 3.9 - 5.3 cm LV Systolic Diameter PLAX 5.2 cm IVS Diastolic Thickness 0.9 cm 0.6 - 1.0 / 0.6 - 0.9 cm LVPW Diastolic Thickness 1.0 cm 0.6 - 1.0 / 0.6 - 0.9 cm LV Relative Wall Thickness 0.3 M-MODE Aortic Root Diameter MM 3.8 cm LA Systolic Diameter MM 2.9 cm LA Ao Ratio MM 0.8 MV E Point Septal Separation 3.7 cm AV Cusp Separation MM 2.0 cm DOPPLER AV Peak Velocity 93.0 cm/s AV Peak Gradient 3.5 mmHg MV Area PHT 2.8 cm??? MR Peak Velocity 103.4 cm/s MR Peak Gradient 4.3 mmHg Mitral E Point Velocity 67.8 cm/s Mitral A Point Velocity 65.9 cm/s Mitral E to A Ratio 1.0 MV Deceleration Time 268.7 ms TR Peak Velocity 81.8 cm/s TR Peak Gradient 2.7 mmHg Right Ventricular Systolic Press 7.7 mmHg FINDINGS Left Ventricle Left ventricular ejection fraction is estimated at 20 %. Akinesis of the anteroapical, anteroseptal and anterolateral wall Right Ventricle Right ventricle not well visualized. Right Atrium Right atrium not well visualized. Left Atrium Left atrium not well visualized. Mitral Valve Mitral valve not well visualized. Aortic Valve Aortic valve not well visualized. Tricuspid Valve Tricuspid valve not well visualized. Pulmonic Valve Pulmonic valve not well visualized. Pericardium No pericardial effusion. Aorta Aortic root and proximal ascending aorta not well visualized. CONCLUSIONS Technically difficult study. 1. Severely impaired the ventricle systolic function with segmental wall motion abnormality, consistent with CAD 2. Valvular structures were not visualized. Previewed by: Dr. Erwin Gonsalves MD (Electronically Signed) Final Date: 01 January 2022 07:31
[2022-01-01] MEDS: IPRATROPIUM BROMIDE 0.06% NASAL SPRAY (15 ML) EA NOSTRIL SCH (08:46)
[2022-01-01] MEDS: lisinopriL 20 MG TAB PO SCH (08:47)
[2022-01-01] MEDS: ATORVASTATIN 40 MG TAB PO SCH (08:47)
[2022-01-01] MEDS: ASPIRIN 81 MG PO SCH (08:47)
[2022-01-01] MEDS: AMIODARONE 100 MG TAB PO SCH (08:47)
[2022-01-01] MEDS: FUROSEMIDE 20 MG TAB PO SCH (08:47)
[2022-01-01] MEDS: ISOSORBIDE MONONITRATE ER 60 MG TAB.ER.24H PO SCH ×2 (08:47→20:27)
[2022-01-01] MEDS ORDERED: ALPRAZolam 0.25 MG TAB PO PRN (09:12)
[2022-01-01] MEDS ORDERED: ASPIRIN 325 MG TAB PO STA (09:12)
[2022-01-01] MEDS ORDERED: ATORVASTATIN 80 MG TAB PO STA (09:12)
[2022-01-01] MEDS ORDERED: NITROGLYCERIN SL TABS 0.4 MG TAB SUBLINGUAL PRN (09:12)
[2022-01-01] MEDS ORDERED: ALPRAZolam 0.5 MG TAB PO PRN (09:12)
--- NOTE | 2022-01-01 11:00 | P.PN ---
Progress Note - Text Progress Note Date: 01/01/22 The patient presented with worsening chest discomfort and evidence of non-STEMI. He is pain-free today. He has a known severe ischemic cardiomyopathy with known severe CAD, post CABG and ICD placement he has evidence of chronic kidney disease. I discussed with him options of proceeding with repeat coronary angiography and possible PCI. The risks and the complications, the risk of worsening renal function were discussed with him. The patient is in favor of maximizing medical therapy. I would recommend to continue on IV heparin for another 24-48 hours, add Plavix. We will monitor his symptoms and his renal functions and depending on his progress further recommendations will be made.
[2022-01-01] MEDS: CLOPIDOGREL 75 MG TAB PO SCH (11:57)
--- NOTE | 2022-01-01 12:02 | P.PN ---
Subjective Progress Note Date: 01/01/22 HISTORY OF PRESENT ILLNESS This is an 86-year-old male patient with past medical history of myocardial infarction, CABG, cardiac catheterization with stent placement,hypertension, hyperlipidemia,Pacemaker implantation. 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 Gonsalves. Patient gives history that he woke up at 6 AM To the bathroom and to the kitchen drinking some water that apparently went back to bed. He had developed chest pain in the midsternal area without radiation. He denies having any shortness of breath with this. He told his that he thought he was going to . He did not take any nitroglycerin sublingually because it is old greater than 10 years old. Patient then states that he had the pain the night before he went to bed but he thought it would get better. At the time of this evaluation, patient denies having any chest pain, no shortness of breath, no lightheadedness or dizziness. He denies having any heartburn. He last saw Dr. Gonsalves in early November. Patient was found to be afebrile, heart rate 60, blood pressure 138/78, pulse ox 94% on room air. EKG is in atrial paced rhythm. CBC is unremarkable. INR 1.1. Chloride 110 otherwise electrolytes are within normal limits. BUN 63 and creatinine 1.59. Liver function tests are normal. Magnesium 2.3. Troponin 0.083 and 0.012. ProBNP 2900. Coronavirus PCR negative, influenza A negative, influenza B negative. Chest x-ray reveals chronic changes and cardiomegaly without acute pulmonary process. Patient is seen today in the ER waiting for a bed on the cardiac stepdown unit, cardiology consult and Echocardiogram requested. 01/01: Patient has been afebrile, heart rate 60, blood pressure 106/58, pulse ox 97% on 2 L nasal cannula. Repeat troponins came back at 1.67 and 2.21. WBC 7.5, hemoglobin 12.8 and platelet count 130. INR 1.1. BUN 58 creatinine 1.56. Patient remains on a heparin drip. Echocardiogram reveals EF of 20%. Patient has been seen by cardiology and patient was given option of cardiac catheterization but patient has opted for medical management. Patient to continue IV heparin for another 24-48 hours and Plavix was added. REVIEW OF SYSTEMS Constitutional: No fever, no chills, no night sweats. No weight change. No weakness, fatigue or lethargy. No daytime sleepiness. EENT: No headache. No blurred vision or double vision, no loss of vision. No loss of Hearing, no ringing in the ears, no dizziness. No nasal drainage or congestion. No epistaxis. No sore throat. Lungs: No shortness of breath, cough, no sputum production. No wheezing. Cardiovascular: Reported chest pain-resolved, no lower extremity edema. No palpitations. No paroxysmal nocturnal dyspnea. No orthopnea. No lightheadedness or dizziness. No syncopal episodes. Abdominal: No abdominal pain. No nausea, vomiting. No diarrhea. No constipation. No bloody or tarry stools. No loss of appetite. Genitourinary: No dysuria, increased frequency, urgency. No urinary retention. Musculoskeletal: No myalgias. No muscle weakness, no gait dysfunction, no frequent falls. No back pain. No neck pain. Integumentary: No wounds, no lesions. No rash or pruritus. No unusual brui sing. No change in hair or nails. Neurologic: No aphasia. No facial droop. No change in mentation. No head injury. No headache. No paralysis. No paresthesia. Psychiatric: No depression. No anxiety. No mood swings. Endocrine: No abnormal blood sugars. No weight change. No excessive sweating or thirst. No cold intolerance. PHYSICAL EXAMINATION Gen: This is an 86-year-old male resting on the edge of the ER stretcher. He appears to be in no acute distress. Patient's and daughter are at bedside. HEENT: Head is atraumatic, normocephalic. Pupils equal, round. Sclerae is anicteric. NECK: Supple. No JVD. No lymphadenopathy. No thyromegaly. LUNGS: Clear to auscultation. No wheezes or rhonchi. No intercostal retractions. HEART: First heart sound is depressed, second heart sound is normal, 2/6 systolic ejection murmur at the left sternal border, no S3, no S4. ABDOMEN: Soft. Bowel sounds are present. No masses. No tenderness. EXTREMITIES: No pedal edema. No calf tenderness. NEUROLOGICAL: Patient is awake, alert and oriented x3. Cranial nerves 2 through 12 are grossly intact. ASSESSMENT AND PLAN 1. Chest pain rule out non-ST elevated myocardial infarction, repeat troponin, echocardiogram as above, cardiology consult appreciated, patient continued on heparin drip for another 24-48 hours, Plavix 75 mg daily added. 2. History of coronary artery disease with previous CABG and stent placement. Continue aspirin 81 mg daily, Lipitor 40 mg daily, Coreg 6.25 mg twice daily. 3. Hyperlipidemia. Continue atorvastatin 40 mg daily. 4. Hypertension. Continue Coreg, Lasix 20 mg daily, lisinopril 20 mg daily. 5. Pacemaker implantation. 6. GI prophylaxis. Protonix 40 mg daily. 7. DVT prophylaxis. Heparin drip. DISCHARGE PLAN Return home. Impression and plan of care have been directed as dictated by the signing physician. Lyssa Gonzalez nurse practitioner acting as scribe for signing ph ysician. Objective - Vital Signs Vital signs: Vital Signs Temp 97.8 F 01/01/22 00:12 Pulse 60 01/01/22 04:05 Resp 14 01/01/22 04:05 BP 106/58 01/01/22 04:05 Pulse Ox 97 01/01/22 04:05 FiO2 Intake & Output 12/31/21 01/01/22 01/01/22 18:59 06:59 18:59 Intake Total 48.252 Balance 48.252 Weight 61.235 kg 62.2 kg Intake: Intake, IV Titration 48.252 Amount Heparin Sod,Pork in 0.45% 48.252 NaCl 25,000 unit In 0.45 % NaCl 1 250ml.bag @ 12 UNITS/KG/HR 7.348 mls/hr IV .Q24H [facility] Rx#: [id number] Other: Voiding Method Toilet # Voids 2 - Labs CBC & Chem 7: 01/01/22 03:38 01/01/22 03:38 Labs: Abnormal Lab Results - Last 24 Hours (Table) 12/31/21 12/31/21 12/31/21 Range/Units 08:31 08:31 08:31 RBC 4.18 L (4.30-5.90) m/uL Hgb (13.0-17.5) gm/dL Hct (39.0-53.0) % MCV (80.0-100.0) fL Plt Count (150-450) k/uL APTT (22.0-30.0) sec Chloride 110 H (98-107) mmol/L BUN 63 H (9-20) mg/dL Creatinine 1.59 H (0.66-1.25) mg/dL Glucose 117 H (74-99) mg/dL Calcium (8.4-10.2) mg/dL Troponin I 0.083 H* (0.000-0.034) ng/mL 12/31/21 12/31/21 12/31/21 Range/Units 13:49 15:15 19:06 RBC (4.30-5.90) m/uL Hgb (13.0-17.5) gm/dL Hct (39.0-53.0) % MCV (80.0-100.0) fL Plt Count (150-450) k/uL APTT 130.1 H* (22.0-30.0) sec Chloride (98-107) mmol/L BUN (9-20) mg/dL Creatinine (0.66-1.25) mg/dL Glucose (74-99) mg/dL Calcium (8.4-10.2) mg/dL Troponin I 1.670 H* 2.210 H* (0.000-0.034) ng/mL 01/01/22 01/01/22 01/01/22 Range/Units 03:38 03:38 03:38 RBC 3.83 L (4.30-5.90) m/uL Hgb 12.8 L (13.0-17.5) gm/dL Hct 38.5 L (39.0-53.0) % MCV 100.4 H (80.0-100.0) fL Plt Count 130 L (150-450) k/uL APTT 56.3 H (22.0-30.0) sec Chloride 109 H (98-107) mmol/L BUN 58 H (9-20) mg/dL Creatinine 1.56 H (0.66-1.25) mg/dL Glucose (74-99) mg/dL Calcium 8.2 L (8.4-10.2) mg/dL Troponin I (0.000-0.034) ng/mL
[2022-01-01] MEDS: polyethylene glycoL 3350 17 GM POWD.PACK PO SCH (16:12)
[2022-01-01] MEDS: NITROGLYCERIN OINT 1 INCH/GM PACKET TOPICAL SCH (23:42)
[2022-01-02 05:00] LABS: Calcium 8.5 mg/dL (8.4-10.2); Potassium 5.1 mmol/L (3.5-5.1)
[2022-01-02] MEDS: NITROGLYCERIN OINT 1 INCH/GM PACKET TOPICAL SCH ×4 (06:20→21:12)
[2022-01-02] MEDS: carvediloL 6.25 MG TAB PO SCH ×2 (06:20→16:40)
[2022-01-02] MEDS: PANTOPRAZOLE 40 MG TABLET PO SCH (06:20)
[2022-01-02] MEDS: HEPARIN SOD,PORK IN 0.45% NACL 25,000 UNIT in 0.45% NACL 1 250ML.BAG IV SCH ×2 (06:21→12:58)
[2022-01-02] MEDS ORDERED: HEPARIN SODIUM,PORCINE 2,500 UNIT in SODIUM CHLORIDE 0.9% 250 ML IRRIGATION PRN (07:00)
[2022-01-02] MEDS ORDERED: HEPARIN SODIUM,PORCINE 10,000 UNIT in SODIUM CHLORIDE 0.9% 1,000 ML IRRIGATION PRN (07:00)
[2022-01-02] MEDS: lisinopriL 20 MG TAB PO SCH (08:00)
[2022-01-02] MEDS: FUROSEMIDE 20 MG TAB PO SCH (08:00)
[2022-01-02] MEDS: CLOPIDOGREL 75 MG TAB PO SCH (08:00)
[2022-01-02] MEDS: ATORVASTATIN 40 MG TAB PO SCH (08:00)
[2022-01-02] MEDS: AMIODARONE 100 MG TAB PO SCH (08:00)
[2022-01-02] MEDS: ASPIRIN 81 MG PO SCH (08:00)
[2022-01-02] MEDS: polyethylene glycoL 3350 17 GM POWD.PACK PO SCH (08:14)
--- NOTE | 2022-01-02 10:23 | P.PN ---
Subjective Progress Note Date: 01/02/22 HISTORY OF PRESENT ILLNESS This is an 86-year-old male patient with past medical history of myocardial infarction, CABG, cardiac catheterization with stent placement,hypertension, hyperlipidemia,Pacemaker implantation. 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 Gonsalves. Patient gives history that he woke up at 6 AM To the bathroom and to the kitchen drinking some water that apparently went back to bed. He had developed chest pain in the midsternal area without radiation. He denies having any shortness of breath with this. He told his that he thought he was going to . He did not take any nitroglycerin sublingually because it is old greater than 10 years old. Patient then states that he had the pain the night before he went to bed but he thought it would get better. At the time of this evaluation, patient denies having any chest pain, no shortness of breath, no lightheadedness or dizziness. He denies having any heartburn. He last saw Dr. Gonsalves in early November. Patient was found to be afebrile, heart rate 60, blood pressure 138/78, pulse ox 94% on room air. EKG is in atrial paced rhythm. CBC is unremarkable. INR 1.1. Chloride 110 otherwise electrolytes are within normal limits. BUN 63 and creatinine 1.59. Liver function tests are normal. Magnesium 2.3. Troponin 0.083 and 0.012. ProBNP 2900. Coronavirus PCR negative, influenza A negative, influenza B negative. Chest x-ray reveals chronic changes and cardiomegaly without acute pulmonary process. Patient is seen today in the ER waiting for a bed on the cardiac stepdown unit, cardiology consult and Echocardiogram requested. 01/01: Patient has been afebrile, heart rate 60, blood pressure 106/58, pulse ox 97% on 2 L nasal cannula. Repeat troponins came back at 1.67 and 2.21. WBC 7.5, hemoglobin 12.8 and platelet count 130. INR 1.1. BUN 58 creatinine 1.56. Patient remains on a heparin drip. Echocardiogram reveals EF of 20%. Patient has been seen by cardiology and patient was given option of cardiac catheterization but patient has opted for medical management. Patient to continue IV heparin for another 24-48 hours and Plavix was added. 01/02: Patient remains afebrile, heart rate 60, blood pressure 92/55, pulse ox 97% on 2 L nasal cannula. 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 Repeat blood work reveals normal electrolytes, BUN 55 and creatinine 1.67. Patient remains on heparin drip. The patient is still having chest pains and has been decided that he will go for cardiac catheterization most likely will occur today. REVIEW OF SYSTEMS Constitutional: No fever, no chills, no night sweats. No weight change. No weakness, fatigue or lethargy. No daytime sleepiness. EENT: No headache. No blurred vision or double vision, no loss of vision. No loss of Hearing, no ringing in the ears, no dizziness. No nasal drainage or congestion. No epistaxis. No sore throat. Lungs: No shortness of breath, cough, no sputum production. No wheezing. Cardiovascular: Reports chest pain, no lower extremity edema. No palpitations. No paroxysmal nocturnal dyspnea. No orthopnea. No lightheadedness or dizziness. No syncopal episodes. Abdominal: No abdominal pain. No nausea, vomiting. No diarrhea. No constipation. No bloody or tarry stools. No loss of appetite. Genitourinary: No dysuria, increased frequency, urgency. No urinary retention. Musculoskeletal: No myalgias. No muscle weakness, no gait dysfunction, no frequent falls. No back pain. No neck pain. Integumentary: No wounds, no lesions. No rash or pruritus. No unusual bruising. No change in hair or nails. Neurologic: No aphasia. No facial droop. No change in mentation. No head injury. No headache. No paralysis. No paresthesia. Psychiatric: No depression. No anxiety. No mood swings. Endocrine: No abnormal blood sugars. No weight change. No excessive sweating or thirst. No cold intolerance. PHYSICAL EXAMINATION Gen: This is an 86-year-old male resting in bed. He appears to be in no acute distress. Patient's and daughter are at bedside. HEENT: Head is atraumatic, normocephalic. Pupils equal, round. Sclerae is anicteric. NECK: Supple. No JVD. No lymphadenopathy. No thyromegaly. LUNGS: Clear to auscultation. No wheezes or rhonchi. No intercostal retractions. HEART: First heart sound is depressed, second heart sound is normal, 2/6 sy stolic ejection murmur at the left sternal border, no S3, no S4. ABDOMEN: Soft. Bowel sounds are present. No masses. No tenderness. EXTREMITIES: No pedal edema. No calf tenderness. NEUROLOGICAL: Patient is awake, alert and oriented x3. Cranial nerves 2 through 12 are grossly intact. ASSESSMENT AND PLAN 1. Chest pain rule out non-ST elevated myocardial infarction, repeat troponin, echocardiogram as above, cardiology consult appreciated, patient continued on heparin drip, continue patient on Plavix 75 mg daily, cardiac catheterization to be scheduled. 2. History of coronary artery disease with previous CABG and stent placement. Continue aspirin 81 mg daily, Lipitor 40 mg daily, Coreg 6.25 mg twice daily. 3. Hyperlipidemia. Continue atorvastatin 40 mg daily. 4. Hypertension. Continue Coreg, Lasix 20 mg daily, lisinopril 20 mg daily. 5. Pacemaker implantation. 6. GI prophylaxis. Protonix 40 mg daily. 7. DVT prophylaxis. Heparin drip. DISCHARGE PLAN Return home. Impression and plan of care have been directed as dictated by the signing physician. Lyssa Gonzalez nurse practitioner acting as scribe for signing physician. Objective - Vital Signs Vital signs: Vital Signs Temp 97.7 F 01/02/22 07:50 Pulse 60 01/02/22 07:50 Resp 14 01/02/22 07:50 BP 92/55 01/02/22 07:50 Pulse Ox 97 01/02/22 04:52 FiO2 Intake & Output 01/01/22 01/02/22 01/02/22 18:59 06:59 18:59 Intake Total 360 188.568 Output Total 200 Balance 360 -11.432 Weight 62.1 kg Intake: Intake, IV Titration 188.568 Amount Heparin Sod,Pork in 0.45% 188.568 NaCl 25,000 unit In 0.45 % NaCl 1 250ml.bag @ 12 UNITS/KG/HR 7.348 mls/hr IV .Q24H [facility] Rx#: [id number] Oral 360 Output: Urine 200 Other: Voiding Method Toilet Toilet # Voids 3 1 - Labs CBC & Chem 7: 01/01/22 03:38 01/02/22 03:42 Labs: Abnormal Lab Results - Last 24 Hours (Table) 01/02/22 01/02/22 Range/Units 03:42 03:42 APTT 57.5 H (22.0-30.0) sec BUN 55 H (9-20) mg/dL Creatinine 1.67 H (0.66-1.25) mg/dL Glucose 107 H (74-99) mg/dL
[2022-01-02] MEDS: IPRATROPIUM BROMIDE 0.06% NASAL SPRAY (15 ML) EA NOSTRIL SCH (12:58)
--- NOTE | 2022-01-02 13:27 | CONS ---
CONSULTATION This is an 86-year-old elderly gentleman with ischemic cardiomyopathy who sees Dr. Gonsalves in the outpatient setting. He has history of hypertension, hyperlipidemia, previous bypass surgery and also multivessel PCI. He came to the hospital with episode of chest pain strongly suggestive angina and has elevated troponin with a non-ST- elevation NC type picture. He has multiple comorbid conditions including sick sinus syndrome with a permanent pacemaker, underlying atrial fibrillation and IVCD like picture. Patient has had history of CAD, prior bypass surgery and multivessel PCI. He has hypertension and hyperlipidemia. PAST MEDICAL HISTORY: Remarkable for ischemic cardiomyopathy previous bypass surgery, hypertension, hyperlipidemia and persistent atrial fibrillation with sick sinus syndrome and underlying pacemaker. MEDICATIONS: Medications at home include carvedilol, Accupril, apixaban, aspirin, amiodarone, nitroglycerin and Imdur. PHYSICAL EXAMINATION: On examination, blood pressure is 108/70, pulse rate is 64 per minute, regular. HEENT unremarkable. Fundus was not examined by me. Neck is supple. There is JVD of 1 cm. No carotid bruit, S1-S2 heard normally. Short systolic murmur is audible left sternal border and at the base. Lungs reveal diminished air entry. Abdomen is soft, nontender. Lower extremities reveal diminished pulses. Central nervous system is normal. EKG revealed atrial paced rhythm with intrinsic IVCD of RBBB type and leftward axis. LABORATORY DATA: Reveal elevated troponin of 1.6, initial troponin was normal. There is mild renal dysfunction with a creatinine of 1.56. Patient does not have diabetes. IMPRESSION: 1. Non ST elevation NC in a patient with known CAD and multivessel PCI and prior bypass surgery. 2. Hypertension. 3. Hyperlipidemia. RECOMMENDATIONS: I am recommending coronary angiography given his picture, echo revealed ejection fraction of 20-25%. However, patient has renal dysfunction. This is an issue. I have advised cardiac cath. The patient is agreeable and I have requested Dr. Gonsalves to perform the procedure and he follows him usually in the office. We will continue heparin drip until an hour before cardiac cath. I discussed my thoughts in detail with the patient. Thank you very much for the consult. MMODL / IJN: [id number] /
--- NOTE | 2022-01-02 14:19 | P.PN ---
Subjective Progress Note Date: 01/02/22 This is Juan Broderick NP, I'm dictating on behalf of Dr. Sarabia's H&P and A&P. Patient was interviewed and examined. Patient is a pleasant 86-year-old male who initially presented to the hospital with an NSTEMI and elevated troponins. Patient reports that he did have some chest pain last night, but did resolve with one sublingual nitro. Patient initially desired medical management for the NSTEMI, however since having the chest pain last night, he is thinking he would like to have coronary interven tion completed. He currently denies current chest pain and shortness of breath. He also denies dizziness and fatigue. GENERAL: Well-appearing, well-nourished and in no acute distress. NECK: Supple without JVD or thyromegaly. LUNGS: Breath sounds clear to auscultation bilaterally. Respiration equal and unlabored. No wheezes, rales or rhonchi. HEART: Regular rate and rhythm without murmurs, rubs or gallops. S1 and S2 heard. EXTREMITIES: Normal range of motion, no edema. No clubbing or cyanosis. Peripheral pulses intact and strong. VITALS: Temp 97.7, pulse 60, respirations 18, blood pressure 92/55, O2 saturation 97% on 2 L via nasal cannula TELEMETRY: Normal sinus rhythm LABS: White count 7.5, hemoglobin 12.8, platelets 1:30, sodium 137, potassium 5.1, BUN 55, creatinine 1.67 IMPRESSION: 1. Non-ST elevated MT 2. CAD 3. Hyperlipidemia 4. Hypertension PLAN: Decrease lisinopril to 10 mg daily secondary to decreased blood pressures Continue heparin drip Plan for PCI on Tuesday The patient continues to have chest pain, will start Nitropaste 1/2 inch. Further recommendations based on the patient's clinical course Objective - Vital Signs Vital signs: Vital Signs Temp 97.7 F 01/02/22 07:50 Pulse 60 01/02/22 12:00 Resp 18 01/02/22 13:17 BP 106/55 01/02/22 12:00 Pulse Ox 97 01/02/22 12:00 FiO2 Intake & Output 01/01/22 01/02/22 01/02/22 18:59 06:59 18:59 Intake Total 360 188.568 Output Total 200 250 Balance 360 -11.432 -250 Weight 62.1 kg Intake: Intake, IV Titration 188.568 Amount Heparin Sod,Pork in 0.45% 188.568 NaCl 25,000 unit In 0.45 % NaCl 1 250ml.bag @ 12 UNITS/KG/HR 7.348 mls/hr IV .Q24H [facility] Rx#: [id number] Oral 360 Output: Urine 200 250 Other: Voiding Method Toilet Toilet # Voids 3 1 - Labs CBC & Chem 7: 01/01/22 03:38 01/02/22 03:42 Labs: Abnormal Lab Results - Last 24 Hours (Table) 01/02/22 01/02/22 Range/Units 03:42 03:42 APTT 57.5 H (22.0-30.0) sec BUN 55 H (9-20) mg/dL Creatinine 1.67 H (0.66-1.25) mg/dL Glucose 107 H (74-99) mg/dL
[2022-01-03] MEDS: PANTOPRAZOLE 40 MG TABLET PO SCH (06:43)
[2022-01-03] MEDS: carvediloL 6.25 MG TAB PO SCH ×2 (06:43→17:05)
[2022-01-03] MEDS: NITROGLYCERIN OINT 1 INCH/GM PACKET TOPICAL SCH ×4 (06:43→19:47)
[2022-01-03] MEDS: lisinopriL 10 MG TAB PO SCH (07:23)
[2022-01-03] MEDS: CLOPIDOGREL 75 MG TAB PO SCH (08:27)
[2022-01-03] MEDS: ASPIRIN 81 MG PO SCH (08:27)
[2022-01-03] MEDS: FUROSEMIDE 20 MG TAB PO SCH (08:27)
[2022-01-03] MEDS: ATORVASTATIN 40 MG TAB PO SCH (08:28)
[2022-01-03] MEDS: AMIODARONE 100 MG TAB PO SCH (08:28)
[2022-01-03] MEDS: polyethylene glycoL 3350 17 GM POWD.PACK PO SCH (08:28)
[2022-01-03] MEDS: IPRATROPIUM BROMIDE 0.06% NASAL SPRAY (15 ML) EA NOSTRIL SCH (08:28)
--- NOTE | 2022-01-03 09:38 | P.PN ---
Subjective Progress Note Date: 01/03/22 HISTORY OF PRESENT ILLNESS This is an 86-year-old male patient with past medical history of myocardial infarction, CABG, cardiac catheterization with stent placement,hypertension, hyperlipidemia,Pacemaker implantation. Patient's bilingual administrative assistant is Dr. Gonsalves. Patient gives history that he woke up at 6 AM To the bathroom and to the kitchen drinking some water that apparently went back to bed. He had developed chest pain in the midsternal area without radiation. He denies having any shortness of breath with this. He told his that he thought he was going to . He did not take any nitroglycerin sublingually because it is old greater than 10 years old. Patient then states that he had the pain the night before he went to bed but he thought it would get better. At the time of this evaluation, patient denies having any chest pain, no shortness of breath, no lightheadedness or dizziness. He denies having any heartburn. He last saw Dr. Gonsalves in early November. Patient was found to be afebrile, heart rate 60, blood pressure 138/78, pulse ox 94% on room air. EKG is in atrial paced rhythm. CBC is unremarkable. INR 1.1. Chloride 110 otherwise electrolytes are within normal limits. BUN 63 and creatinine 1.59. Liver function tests are normal. Magnesium 2.3. Troponin 0.083 and 0.012. ProBNP 2900. Coronavirus PCR negative, influenza A negative, influenza B negative. Chest x-ray reveals chronic changes and cardiomegaly without acute pulmonary process. Patient is seen today in the ER waiting for a bed on the cardiac stepdown unit, cardiology consult and Echocardiogram requested. 01/01: Patient has been afebrile, heart rate 60, blood pressure 106/58, pulse ox 97% on 2 L nasal cannula. Repeat troponins came back at 1.67 and 2.21. WBC 7.5, hemoglobin 12.8 and platelet count 130. INR 1.1. BUN 58 creatinine 1.56. Patient remains on a heparin drip. Echocardiogram reveals EF of 20%. Patient has been seen by cardiology and patient was given option of cardiac catheterization but patient has opted for medical management. Patient to continue IV heparin for another 24-48 hours and Plavix was added. 01/02: Patient remains afebrile, heart rate 60, blood pressure 92/55, pulse ox 97% on 2 L nasal cannula. conveyor monitor is atrial paced rhythm. Repeat blood work reveals normal electrolytes, BUN 55 and creatinine 1.67. Patient remains on heparin drip. The patient is still having chest pains and has been decided that he will go for cardiac catheterization most likely will occur today. 01/03: Patient is laying down in bed in no apparent distress at this time, he was seen yesterday by cardiology, he was given heparin drip, decrease his lisinopril to 5 mg every day, he was started on nitroglycerin paste half an inch every 6 hours, patient did have another episode of unstable angina last time with ablation, patient is scheduled to go for left heart catheterization tomorrow morning with Dr. Gonsalves for further evaluation and possible PCI on Tuesday. REVIEW OF SYSTEMS Constitutional: No fever, no chills, no night sweats. No weight change. No weakness, fatigue or lethargy. No daytime sleepiness. EENT: No headache. No blurred vision or double vision, no loss of vision. No loss of Hearing, no ringing in the ears, no dizziness. No nasal drainage or congestion. No epistaxis. No sore throat. Lungs: No shortness of breath, cough, no sputum production. No wheezing. Cardiovascular: Reports chest pain, no lower extremity edema. No palpitations. No paroxysmal nocturnal dyspnea. No orthopnea. No lightheadedness or dizziness. No syncopal episodes. Abdominal: No abdominal pain. No nausea, vomiting. No diarrhea. No constipation. No bloody or tarry stools. No loss of appetite. Genitourinary: No dysuria, increased frequency, urgency. No urinary retention. Musculoskeletal: No myalgias. No muscle weakness, no gait dysfunction, no frequent falls. No back pain. No neck pain. Integumentary: No wounds, no lesions. No rash or pruritus. No unusual bruising. No change in hair or nails. Neurologic: No aphasia. No facial droop. No change in mentation. No head injury. No headache. No paralysis. No paresthesia. Psychiatric: No depression. No anxiety. No mood swings. Endocrine: No abnormal blood sugars. No weight change. No excessive sweating or thirst. No cold intolerance. PHYSICAL EXAMINATION Gen: This is an 86-year-old male resting in bed. He appears to be in no acute distress. Patient's and daughter are at bedside. HEENT: Head is atraumatic, normocephalic. Pupils equal, round. Sclerae is anicteric. NECK: Supple. No JVD. No lymphadenopathy. No thyromegaly. LUNGS: Clear to auscultation. No wheezes or rhonchi. No intercostal retractions. HEART: First heart sound is depressed, second heart sound is normal, 2/6 systolic ejection murmur at the left sternal border, no S3, no S4. ABDOMEN: Soft. Bowel sounds are present. No masses. No tenderness. EXTREMITIES: No pedal edema. No calf tenderness. NEUROLOGICAL: Patient is awake, alert and oriented x3. Cranial nerves 2 through 12 are grossly intact. ASSESSMENT AND PLAN 1. Chest pain rule out non-ST elevated myocardial infarction, repeat troponin, echocardiogram as above, cardiology consult appreciated, patient continued on heparin drip, continue patient on Plavix 75 mg daily, cardiac catheterization to be scheduled for Tuesday. 2. History of coronary artery disease with previous CABG and stent placement. Continue aspirin 81 mg daily, Lipitor 40 mg daily, Coreg 6.25 mg twice daily. 3. Hyperlipidemia. Continue atorvastatin 40 mg daily. 4. Hypertension. Continue Coreg 6.25 mg orally twice every day and lisinopril 10 mg daily. 5. Pacemaker implantation. Stable at this time. 6. Acute kidney injury and top of chronic kidney disease stage IIIA. Continue to monitor the patient very closely, monitor the patient CMP tomorrow morning, I discussed the risks versus benefits and the patient's going for heart catheterization tomorrow, his son was at the bedside 6. , GI prophylaxis. Protonix 40 mg daily. 7. DVT prophylaxis. Heparin drip. 8. Prognosis is guarded. Objective - Vital Signs Vital signs: Vital Signs Temp 97.5 F L 01/03/22 08:00 Pulse 60 01/03/22 08:00 Resp 18 01/03/22 08:00 BP 91/59 01/03/22 08:00 Pulse Ox 100 01/03/22 08:00 FiO2 Intake & Output 01/02/22 01/03/22 01/03/22 18:59 06:59 18:59 Intake Total 300 Output Total 250 250 Balance -250 -250 300 Intake: Oral 300 Output: Urine 250 250 Other: Voiding Method Toilet # Voids 1 0 - Labs CBC & Chem 7: 01/01/22 03:38 01/02/22 03:42 Labs: Abnormal Lab Results - Last 24 Hours (Table) 01/03/22 Range/Units 06:50 APTT 54.5 H (22.0-30.0) sec
[2022-01-03] MEDS ORDERED: ALPRAZolam 0.25 MG TAB PO PRN (10:33)
[2022-01-03] MEDS ORDERED: ASPIRIN 325 MG TAB PO STA (10:33)
[2022-01-03] MEDS ORDERED: NITROGLYCERIN SL TABS 0.4 MG TAB SUBLINGUAL PRN (10:33)
[2022-01-03] MEDS ORDERED: ATORVASTATIN 80 MG TAB PO STA (10:33)
--- NOTE | 2022-01-03 11:55 | P.PN ---
Subjective Progress Note Date: 01/03/22 This is Juna Broderick NP, I'm dictating on behalf of Dr. Sarabia's H&P and A&P. Patient was interviewed and examined. Patient is a pleasant 86-year-old male who initially presented to the hospital with an NSTEMI and elevated troponins. Patient reports that he did have more chest pain last night, so nursing did order the nitro paste, which he states helped very much. He currently denies chest pain and shortness of breath. He also denies dizziness and fatigue. He reports the chest pain last night was only when he would get up and walk to the bathroom and back. GENERAL: Well-appearing, well-nourished and in no acute distress. NECK: Supple without JVD or thyromegaly. LUNGS: Breath sounds clear to auscultation bilaterally. Respiration equal and unlabored. No wheezes, rales or rhonchi. HEART: Regular rate and rhythm without murmurs, rubs or gallops. S1 and S2 heard. EXTREMITIES: Normal range of motion, no edema. No clubbing or cyanosis. Peripheral pulses intact and strong. VITALS: Temp 97.5, pulse 60, respirations 18, blood pressure 91/59, O2 saturation 100% on 2 L via nasal cannula TELEMETRY: Normal sinus rhythm LABS: No new labs today IMPRESSION: 1. Non-ST elevated AK 2. CAD 3. Hyperlipidemia 4. Hypertension PLAN: Schedule for left heart cath with possible PCI tomorrow morning Continue current medications as prescribed NPO at midnight Continue Nitropaste as ordered Further recommendations based on the patient's clinical course Objective - Vital Signs Vital signs: Vital Signs Temp 97.5 F L 01/03/22 08:00 Pulse 60 01/03/22 08:00 Resp 18 01/03/22 08:00 BP 91/59 01/03/22 08:00 Pulse Ox 100 01/03/22 08:00 FiO2 Intake & Output 01/02/22 01/03/22 01/03/22 18:59 06:59 18:59 Intake Total 300 Output Total 250 250 Balance -250 -250 300 Intake: Oral 300 Output: Urine 250 250 Other: Voiding Method Toilet # Voids 1 0 2 - Labs CBC & Chem 7: 01/01/22 03:38 01/02/22 03:42 Labs: Abnormal Lab Results - Last 24 Hours (Table) 01/03/22 Range/Units 06:50 APTT 54.5 H (22.0-30.0) sec
[2022-01-03] MEDS ORDERED: NITROGLYCERIN OINT 1 INCH/GM PACKET TOPICAL ONE (19:44)
[2022-01-04] MEDS ORDERED: ATORVASTATIN 80 MG TAB PO ONE (06:00)
[2022-01-04] MEDS ORDERED: ASPIRIN 325 MG TAB PO ONE (06:00)
[2022-01-04] MEDS: PANTOPRAZOLE 40 MG TABLET PO SCH (06:04)
[2022-01-04] MEDS: carvediloL 6.25 MG TAB PO SCH ×2 (06:06→17:33)
[2022-01-04] MEDS: HEPARIN SOD,PORK IN 0.45% NACL 25,000 UNIT in 0.45% NACL 1 250ML.BAG IV SCH ×2 (06:09→08:39)
[2022-01-04] MEDS ORDERED: HEPARIN SODIUM,PORCINE 10,000 UNIT in SODIUM CHLORIDE 0.9% 1,000 ML IRRIGATION PRN (07:00)
[2022-01-04] MEDS ORDERED: HEPARIN SODIUM,PORCINE 2,500 UNIT in SODIUM CHLORIDE 0.9% 250 ML IRRIGATION PRN (07:00)
[2022-01-04 08:10] LABS: Basophils % (A) 1 %; Eosinophils # (A) 0.3 k/uL (0-0.7); Eosinophils % (A) 4 %; HCT 40.2 % (39.0-53.0); HGB 12.9 gm/dL (13.0-17.5); Lymphocytes # (A) 1.3 k/uL (1.0-4.8); Lymphocytes % (A) 20 %; MCH 32.1 pg (25.0-35.0); MCHC 32.1 g/dL (31.0-37.0); MCV 100.2 fL (80.0-100.0); Mean Platelet Volume 9.2; Monocytes # (A) 0.5 k/uL (0-1.0); Monocytes % (A) 8 %; Neutrophils # (A) 4.2 k/uL (1.3-7.7); Neutrophils % (A) 66 %; Platelet Count 119 k/uL (150-450); RBC 4.01 m/uL (4.30-5.90); RDW 13.1 % (11.5-15.5); WBC 6.4 k/uL (3.8-10.6)
[2022-01-04 08:31] LABS: Albumin 3.2 g/dL (3.5-5.0); Calcium 8.4 mg/dL (8.4-10.2); Potassium 4.4 mmol/L (3.5-5.1); Total Bilirubin 0.6 mg/dL (0.2-1.3); Total Protein 5.5 g/dL (6.3-8.2)
[2022-01-04] MEDS: NITROGLYCERIN OINT 1 INCH/GM PACKET TOPICAL SCH ×2 (08:38→13:12)
[2022-01-04] MEDS: CLOPIDOGREL 75 MG TAB PO SCH (08:44)
[2022-01-04] MEDS: FUROSEMIDE 20 MG TAB PO SCH (08:44)
[2022-01-04] MEDS: AMIODARONE 100 MG TAB PO SCH (08:44)
[2022-01-04] MEDS: ATORVASTATIN 40 MG TAB PO SCH (08:45)
[2022-01-04] MEDS: lisinopriL 10 MG TAB PO SCH (08:45)
[2022-01-04] MEDS: ASPIRIN 81 MG PO SCH (08:45)
[2022-01-04] MEDS: polyethylene glycoL 3350 17 GM POWD.PACK PO SCH (08:47)
[2022-01-04] MEDS ORDERED: VERAPAMIL 2.5 MG/ML 2 ML AMP ONE (11:58)
[2022-01-04] MEDS ORDERED: IV FLUID CONTINUATION 1,000 ML IV ONE (12:08)
[2022-01-04] MEDS ORDERED: HEPARIN SODIUM 1,000 UN/ML (10ML VL) ONE (12:31)
[2022-01-04] MEDS ORDERED: fentaNYL (PF) 50 MCG/ML 2 ML AMP ONE (12:31)
[2022-01-04] MEDS ORDERED: fentaNYL (PF) 50 MCG/ML 2 ML AMP IVP ONE (12:43)
[2022-01-04] MEDS ORDERED: LIDOCAINE 1% INJ 10MG/ML (30 ML VIAL-PF) SQ ONE (12:44)
[2022-01-04] MEDS ORDERED: SODIUM CHLORIDE 0.9% 1,000 ML IV ONE (12:46)
[2022-01-04] MEDS ORDERED: HEPARIN SODIUM 1,000 UN/ML (10ML VL) IV ONE (12:59)
[2022-01-04] MEDS: IPRATROPIUM BROMIDE 0.06% NASAL SPRAY (15 ML) EA NOSTRIL SCH (13:12)
[2022-01-04] MEDS ORDERED: NITROGLYCERIN 1000MCG/10ML SYRINGE INTRACORON ONE (13:14)
[2022-01-04] MEDS ORDERED: IOPAMIDOL-370 125ML BTL INJ ONE (13:25)
[2022-01-04] MEDS ORDERED: RX INFO: IV CONTRAST WAS GIVEN 1 EACH MISC MISCELLANE PRN (13:34)
[2022-01-04] MEDS ORDERED: ZOLPIDEM 5 MG TAB PO PRN (13:34)
[2022-01-04] MEDS ORDERED: NITROGLYCERIN SL TABS 0.4 MG TAB SUBLINGUAL PRN (13:34)
[2022-01-04] MEDS ORDERED: MAG HYDROX/AL HYDROX/SIMETH 30 ML CUP PO PRN (13:34)
[2022-01-04] MEDS ORDERED: ATROPINE SULFATE 0.1 MG/ML 10ML SYRINGE IV PRN (13:34)
[2022-01-04] MEDS ORDERED: SODIUM CHLORIDE 0.9% 1,000 ML in EMPTY BAG 1 BAG IV SCH (13:45)
--- NOTE | 2022-01-04 13:47 | P.CARDCATH ---
Date of Procedure: 01/04/22 Description of Procedure: Cardiac Catheterization: The patient is an 86-year-old male with a known history of CAD, status post CABG in 1984, PCI in 2017, chronic kidney disease and severe ischemic cardiomyopathy who presented with non-STEMI and had recurrent chest discomfort. Recommendations were made regarding cardiac catheterization, the risks and the complications were discussed with the patient who is in full understanding and agreement. Procedure Description: Patient was brought to laboratory specialist in fasting semi-sedated state after receiving Fentanyl and Benadryl achieiving moderate conscious sedated state. Using Xylocaine Anesthesia and Seldinger technique, a 6-Macanese sheath was introduced in the right femoral artery . Subsequently, selective coronary angiography was performed using a 6-Macanese 4 bend Harry catheter. Multiple views of the coronary artery including hemiaxial views were obtained. The right Harry catheter was used to cannulate the saphenous vein graft to the RCA and to the obtuse marginal. The 6-Macanese pigtail catheter was used to cross the aortic valve and LVEDP was calculated. After removing the catheters a 6-Macanese left coronary bypass guiding catheter was introduced into system, after cannulating the ostium of the saphenous vein graft to the obtuse marginal branch 0.014 BMW wire was introduced and positioned distally. Subsequently a 3.0 x 12 mm Treck balloon was advanced and inflation at 8 valerie were done. Following that a 3.25 x 23 mm Xience maxim point stent was deployed at 16 valerie, after removing the balloon a 3.5 x 20 mm NC emerge balloon was advanced and inflation at 12 valerie were done. After withdrawing the wire images were obtained and revealed stable successful stenting.Following that, catheter and sheath were removed. Hemostasis was obtained with deployment of Angio-Seal. There was no immediate complication. Patient was returned to room in stable condition. Of note, the patient received a total of for thousand units of intravenous heparin as well as continued on Plavix. There was no immediate complications. He had no chest discomfort with the inflations, his ACT was monitored. Findings: Fluoroscopy revealed significant calcifications of the coronary arteries Left main: This is a large size vessel, bifurcating into left main and left c ircumflex, the left main has 20% plaque distally. LAD: This vessel is totally occluded proximally with bridging collaterals to the mid segment. The mid LAD is diffusely diseased him a heavily calcified with area of stenosis up to 60-70%. Left circumflex: This is a nondominant vessel, giving rise to 2 obtuse marginal branch, the ostium of the left circumflex has an 80% stenosis following that there is diffuse disease up to 80%. The second obtuse marginal branch is totally occluded with no significant antegrade flow RCA: In this vessel is totally occluded proximally with no significant antegrade flow Saphenous vein graft to the obtuse marginal branch: The proximal and distal anastomotic sites are patent. The stented segment in the mid body is patent, distal to the stent there is a 95% stenosis. Intimal disease is noted throughout the graft. The flow into the OM is brisk Saphenous vein graft to the RCA the proximal and distal anastomotic sites are patent the the flow in the PDA is brisk, there is no evidence of high-grade stenosis Left Ventriculogram: Not performed Hemodynamics: There was no gradient across the aortic valve, LVEDP 10-12 mmHg Angioplasty: Successful stenting of the body of the saphenous vein graft to the OM with reduction of the stenosis from 95% to 0% Conclusion: 1. Calcified coronary arteries 2. 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 Chronically occluded RCA and OM 2 with significant disease ostium of the left circumflex 4. Patent saphenous vein graft to the RCA 5. Patent saphenous vein graft to the OM 2 6. Successful stenting of the saphenous vein graft to the OM 2 Recommendations: The patient will continue on Plavix and aspirin with no interruption for one year. Aggressive coronary risks modification will be continued. The findings and the recommendations were discussed with the patient and his family, they are in full understanding and agreement. Close follow-up of his renal function will be done. Duration of sedation is 42 minutes.
[2022-01-04 14:56] VITALS: BMI 22.1
--- NOTE | 2022-01-04 15:38 | P.PN ---
Subjective Progress Note Date: 01/04/22 HISTORY OF PRESENT ILLNESS This is an 86-year-old male patient with past medical history of myocardial infarction, CABG, cardiac catheterization with stent placement,hypertension, hyperlipidemia,Pacemaker implantation. Patient's margin trimmer is Dr. Gonsalves. Patient gives history that he woke up at 6 AM To the bathroom and to the kitchen drinking some water that apparently went back to bed. He had developed chest pain in the midsternal area without radiation. He denies having any shortness of breath with this. He told his that he thought he was going to . He did not take any nitroglycerin sublingually because it is old greater than 10 years old. Patient then states that he had the pain the night before he went to bed but he thought it would get better. At the time of this evaluation, patient denies having any chest pain, no shortness of breath, no lightheadedness or dizziness. He denies having any heartburn. He last saw Dr. Gonsalves in early November. Patient was found to be afebrile, heart rate 60, blood pressure 138/78, pulse ox 94% on room air. EKG is in atrial paced rhythm. CBC is unremarkable. INR 1.1. Chloride 110 otherwise electrolytes are within normal limits. BUN 63 and creatinine 1.59. Liver function tests are normal. Magnesium 2.3. Troponin 0.083 and 0.012. ProBNP 2900. Coronavirus PCR negative, influenza A negative, influenza B negative. Chest x-ray reveals chronic changes and cardiomegaly without acute pulmonary process. Patient is seen today in the ER waiting for a bed on the cardiac stepdown unit, cardiology consult and Echocardiogram requested. 01/01: Patient has been afebrile, heart rate 60, blood pressure 106/58, pulse ox 97% on 2 L nasal cannula. Repeat troponins came back at 1.67 and 2.21. WBC 7.5, hemoglobin 12.8 and platelet count 130. INR 1.1. BUN 58 creatinine 1.56. Patient remains on a heparin drip. Echocardiogram reveals EF of 20%. Patient has been seen by cardiology and patient was given option of cardiac catheterization but patient has opted for medical management. Patient to continue IV heparin for another 24-48 hours and Plavix was added. 01/02: Patient remains afebrile, heart rate 60, blood pressure 92/55, pulse ox 97% on 2 L nasal cannula. leasing assistant is atrial paced rhythm. Repeat blood work reveals normal electrolytes, BUN 55 and creatinine 1.67. Patient remains on heparin drip. The patient is still having chest pains and has been decided that he will go for cardiac catheterization most likely will occur today. 01/03: Patient is laying down in bed in no apparent distress at this time, he was seen yesterday by cardiology, he was given heparin drip, decrease his lisinopril to 5 mg every day, he was started on nitroglycerin paste half an inch every 6 hours, patient did have another episode of unstable angina last time with ablation, patient is scheduled to go for left heart catheterization tomorrow morning with Dr. Gonsalves for further evaluation and possible PCI on Tuesday. 01/04: Patient underwent cardiac catheterization today with Dr. Gonsalves which revealed calcified coronary arteries, chronically occluded LAD is bridging collateral, chronically occluded RCA and OM 2 with significant disease ostium of the left circumflex, saphenous vein graft to the RCA is patent, saphenous vein graft to the OM 2 patent, successful stenting of the saphenous vein graft to OM 2. Patient is continued on aspirin 81 mg daily, atorvastatin 40 mg daily, Coreg 6.25 mg twice daily, started on Plavix 75 mg, Imdur 60 mg daily, lisinopril 10 mg daily. Anticipate possible discharge home tomorrow. REVIEW OF SYSTEMS Constitutional: No fever, no chills, no night sweats. No weight change. No weakness, fatigue or lethargy. No daytime sleepiness. EENT: No headache. No blurred vision or double vision, no loss of vision. No loss of Hearing, no ringing in the ears, no dizziness. No nasal drainage or congestion. No epistaxis. No sore throat. Lungs: No shortness of breath, cough, no sputum production. No wheezing. Cardiovascular: Denies chest pain, no lower extremity edema. No palpitations. No paroxysmal nocturnal dyspnea. No orthopnea. No lightheadedness or dizziness. No syncopal episodes. Abdominal: No abdominal pain. No nausea, vomiting. No diarrhea. No constipation. No bloody or tarry stools. No loss of appetite. Genitourinary: No dysuria, increased frequency, urgency. No urinary retention. Musculoskeletal: No myalgias. No muscle weakness, no gait dysfunction, no frequent falls. No back pain. No neck pain. Integumentary: No wounds, no lesions. No rash or pruritus. No unusual bruising. No change in hair or nails. Neurologic: No aphasia. No facial droop. No change in mentation. No head injury. No headache. No paralysis. No paresthesia. Psychiatric: No depression. No anxiety. No mood swings. Endocrine: No abnormal blood sugars. No weight change. No excessive sweating or thirst. No cold intolerance. PHYSICAL EXAMINATION Gen: This is an 86-year-old male resting in bed. He appears to be in no acute distress. Patient's and daughter are at bedside. HEENT: Head is atraumatic, normocephalic. Pupils equal, round. Sclerae is anicteric. NECK: Supple. No JVD. No lymphadenopathy. No thyromegaly. LUNGS: Clear to auscultation. No wheezes or rhonchi. No intercostal retractions. HEART: First heart sound is depressed, second heart sound is normal, 2/6 systolic ejection murmur at the left sternal border, no S3, no S4. ABDOMEN: Soft. Bowel sounds are present. No masses. No tenderness. EXTREMITIES: No pedal edema. No calf tenderness. NEUROLOGICAL: Patient is awake, alert and oriented x3. Cranial nerves 2 through 12 are grossly intact. ASSESSMENT AND PLAN 1. Chest pain secondary to non-ST elevated myocardial infarction, status post cardiac catheterization and successful stenting of the saphenous vein graft to the OM 01/[address] Gonsalves. Patient is continued on aspirin 81 mg daily, atorvastatin 40 mg daily, Coreg 6.25 mg twice daily, started Plavix 75 mg daily and Imdur 60 mg daily, continue lisinopril 10 mg daily. 2. History of coronary artery disease with previous CABG and stent placement. Continue aspirin 81 mg daily, Lipitor 40 mg daily, Coreg 6.25 mg twice daily. 3. Hyperlipidemia. Continue atorvastatin 40 mg daily. 4. Hypertension. Continue Coreg 6.25 mg orally twice every day and lisinopril 10 mg daily. 5. Pacemaker implantation. Stable at this time. 6. Acute kidney injury and top of chronic kidney disease stage IIIA. Continue to monitor the patient very closely, monitor the patient CMP tomorrow morning, I discussed the risks versus benefits and the patient's going for heart catheterization tomorrow, his son was at the bedside 6. , GI prophylaxis. Protonix 40 mg daily. 7. DVT prophylaxis. 8. Prognosis is guarded. Impression and plan of care have been directed as dictated by the signing physician. Lyssa Gonzalez nurse practitioner acting as scribe for signing physician. Objective - Vital Signs Vital signs: Vital Signs Temp 97.7 F 01/04/22 04:23 Pulse 60 01/04/22 08:00 Resp 18 01/04/22 08:00 BP 125/88 01/04/22 08:00 Pulse Ox 100 01/04/22 08:00 FiO2 Intake & Output 01/03/22 01/04/22 01/04/22 18:59 06:59 18:59 Intake Total 660 250 Output Total 450 Balance 660 -200 Intake: Intake, IV Titration 250 Amount Heparin Sod,Pork in 0.45% 250 NaCl 25,000 unit In 0.45 % NaCl 1 250ml.bag @ 12 UNITS/KG/HR 7.348 mls/hr IV .Q24H ESTELITA Rx#: [id number] Oral 660 Output: Urine 450 Other: Voiding Method Toilet # Voids 2 # Bowel Movements 1 - Labs CBC & Chem 7: 01/04/22 07:29 01/04/22 07:29 Labs: Abnormal Lab Results - Last 24 Hours (Table) 01/04/22 01/04/22 01/04/22 Range/Units 07:29 07:29 07:29 RBC 4.01 L (4.30-5.90) m/uL Hgb 12.9 L (13.0-17.5) gm/dL MCV 100.2 H (80.0-100.0) fL Plt Count 119 L (150-450) k/uL APTT 57.4 H (22.0-30.0) sec Chloride 109 H (98-107) mmol/L BUN 44 H (9-20) mg/dL Creatinine 1.55 H (0.66-1.25) mg/dL Total Protein 5.5 L (6.3-8.2) g/dL Albumin 3.2 L (3.5-5.0) g/dL
[2022-01-04] MEDS: ISOSORBIDE MONONITRATE ER 60 MG TAB.ER.24H PO SCH (17:33)
[2022-01-05] MEDS ORDERED: APIXABAN 5 MG TAB PO SCH (00:30)
[2022-01-05] MEDS: carvediloL 6.25 MG TAB PO SCH (06:44)
[2022-01-05] MEDS: PANTOPRAZOLE 40 MG TABLET PO SCH ×2 (06:47→06:48)
[2022-01-05 08:26] LABS: Basophils % (A) 0 %; Eosinophils # (A) 0.3 k/uL (0-0.7); Eosinophils % (A) 4 %; HCT 41.1 % (39.0-53.0); HGB 13.5 gm/dL (13.0-17.5); Lymphocytes # (A) 1.6 k/uL (1.0-4.8); Lymphocytes % (A) 19 %; MCHC 32.8 g/dL (31.0-37.0); MCV 100.6 fL (80.0-100.0); Monocytes # (A) 0.6 k/uL (0-1.0); Monocytes % (A) 7 %; Neutrophils # (A) 5.8 k/uL (1.3-7.7); Neutrophils % (A) 68 %; Platelet Count 145 k/uL (150-450); RBC 4.08 m/uL (4.30-5.90); RDW 13.1 % (11.5-15.5); WBC 8.4 k/uL (3.8-10.6)
[2022-01-05 08:40] LABS: Calcium 8.6 mg/dL (8.4-10.2); Potassium 4.4 mmol/L (3.5-5.1)
[2022-01-05] MEDS ORDERED: APIXABAN 2.5 MG TABLET PO SCH (09:00)
[2022-01-05 09:18] VITALS: RESP 17
[2022-01-05] MEDS: ISOSORBIDE MONONITRATE ER 60 MG TAB.ER.24H PO SCH (09:18)
[2022-01-05] MEDS: lisinopriL 10 MG TAB PO SCH (09:19)
[2022-01-05] MEDS: ATORVASTATIN 40 MG TAB PO SCH (09:20)
[2022-01-05] MEDS: CLOPIDOGREL 75 MG TAB PO SCH (09:20)
[2022-01-05] MEDS: ASPIRIN 81 MG PO SCH (09:20)
[2022-01-05] MEDS: polyethylene glycoL 3350 17 GM POWD.PACK PO SCH (09:21)
[2022-01-05] MEDS: FUROSEMIDE 20 MG TAB PO SCH (09:21)
[2022-01-05] MEDS: AMIODARONE 100 MG TAB PO SCH (09:22)
[2022-01-05] MEDS: IPRATROPIUM BROMIDE 0.06% NASAL SPRAY (15 ML) EA NOSTRIL SCH (09:22)
[2022-01-05 11:30] VITALS: PULSE 61
--- NOTE | 2022-01-05 11:33 | P.PN ---
Subjective Principal diagnosis: Patient is doing well. He has no further chest discomfort no dizziness no lightheadedness He is ambulating around in the hallways His blood pressure was low and I have suggested to him to stay for another day How the patient was adamant about going home Therefore I asked him to walk around to see if was dizzy and lightheaded in addition I asked his nurse to stop Imdur and lisinopril He will continue carvedilol Yesterday he underwent coronary stenting for non-Q-wave myocardial infarction He feels a lot better now On examination heart sounds normal breath sounds are clear Impression Coronary artery disease Status post cardiac stenting Non-Q-wave myocardial infarction with recurrent angina despite maximally tolerated medical treatment Hence we proceeded with the invasive approach Likely discharge today if his blood pressure is in the normal range and he is asymptomatic Follow Dr. Gonsalves Objective - Vital Signs Vital signs: Vital Signs Temp 97.5 F L 01/05/22 11:30 Pulse 61 01/05/22 11:30 Resp 17 01/05/22 11:30 BP 95/60 01/05/22 11:30 Pulse Ox 96 01/05/22 11:30 FiO2 Intake & Output 01/04/22 01/05/22 01/05/22 18:59 06:59 18:59 Intake Total 150 Output Total 400 Balance 150 -400 Weight 62.1 kg Intake: IV 150 Output: Urine 400 Other: Voiding Method Toilet Toilet - Labs CBC & Chem 7: 01/05/22 07:48 01/05/22 07:48 Labs: Abnormal Lab Results - Last 24 Hours (Table) 01/05/22 01/05/22 Range/Units 07:48 07:48 RBC 4.08 L (4.30-5.90) m/uL MCV 100.6 H (80.0-100.0) fL Plt Count 145 L (150-450) k/uL BUN 42 H (9-20) mg/dL Creatinine 1.57 H (0.66-1.25) mg/dL Glucose 104 H (74-99) mg/dL
[2022-01-05 16:07] VITALS: BP 96/54; TEMP 98.4
[2022-01-06] MEDS ORDERED: carvediloL 3.125 MG TAB PO SCH (07:30)
--- NOTE | 2022-01-06 07:38 | P.DS ---
Providers Date of admission: 12/31/21 12:05 Expected date of discharge: 01/05/22 Attending physician: Carlos Enrique Messer Consults: 12/31/21 12:04 Consult Physician Routine Consulting Provider: Santos Munson Consult Reason/Comments: NSTEMi Do you want consulting provider notified?: Yes, Notify in am 01/04/22 13:34 Consult Physician Routine Consulting Provider: Santos Munson Consult Reason/Comments: Post Interventional Patient Do you want consulting provider notified?: Already Contacted Primary care physician: Carlos Enrique Messer Hospital Course: HISTORY OF PRESENT ILLNESS This is an 86-year-old male patient with past medical history of myocardial infarction, CABG, cardiac catheterization with stent placement,hypertension, hyperlipidemia,Pacemaker implantation. Patient's poultry trimmer is Dr. Gonsalves. Patient gives history that he woke up at 6 AM To the bathroom and to the kitchen drinking some water that apparently went back to bed. He had developed chest pain in the midsternal area without radiation. He denies having any shortness of breath with this. He told his that he thought he was going to . He did not take any nitroglycerin sublingually because it is old greater than 10 years old. Patient then states that he had the pain the night before he went to bed but he thought it would get better. At the time of this evaluation, patient denies having any chest pain, no shortness of breath, no lightheadedness or dizziness. He denies having any heartburn. He last saw Dr. Gonsalves in early November. Patient was found to be afebrile, heart rate 60, blood pressure 138/78, pulse ox 94% on room air. EKG is in atrial paced rhythm. CBC is unremarkable. INR 1.1. Chloride 110 otherwise electrolytes are within normal limits. BUN 63 and creatinine 1.59. Liver function tests are normal. Magnesium 2.3. Troponin 0.083 and 0.012. ProBNP 2900. Coronavirus PCR negative, influenza A negative, influenza B negative. Chest x-ray reveals chronic changes and cardiomegaly without acute pulmonary process. Patient is seen today in the ER waiting for a bed on the cardiac stepdown unit, cardiology consult and Echocardiogram requested. 01/01: Patient has been afebrile, heart rate 60, blood pressure 106/58, pulse ox 97% on 2 L nasal cannula. Repeat troponins came back at 1.67 and 2.21. WBC 7.5, hemoglobin 12.8 and platelet count 130. INR 1.1. BUN 58 creatinine 1.56. Patient remains on a heparin drip. Echocardiogram reveals EF of 20%. Patient has been seen by cardiology and patient was given option of cardiac catheterization but patient has opted for medical management. Patient to continue IV heparin for another 24-48 hours and Plavix was added. 01/02: Patient remains afebrile, heart rate 60, blood pressure 92/55, pulse ox 97% on 2 L nasal cannula. monitoring tech is atrial paced rhythm. Repeat blood work reveals normal electrolytes, BUN 55 and creatinine 1.67. Patient remains on heparin drip. The patient is still having chest pains and has been decided that he will go for cardiac catheterization most likely will occur today. 01/03: Patient is laying down in bed in no apparent distress at this time, he was seen yesterday by cardiology, he was given heparin drip, decrease his lisinopril to 5 mg every day, he was started on nitroglycerin paste half an inch every 6 hours, patient did have another episode of unstable angina last time with ablation, patient is scheduled to go for left heart catheterization tomorrow morning with Dr. Gonsalves for further evaluation and possible PCI on Tuesday. 01/04: Patient underwent cardiac catheterization today with Dr. Gonsalves which revealed calcified coronary arteries, chronically occluded LAD is bridging collateral, chronically occluded RCA and OM 2 with significant disease ostium of the left circumflex, saphenous vein graft to the RCA is patent, saphenous vein graft to the OM 2 patent, successful stenting of the saphenous vein graft to OM 2. Patient is continued on aspirin 81 mg daily, atorvastatin 40 mg daily, Coreg 6.25 mg twice daily, started on Plavix 75 mg, Imdur 60 mg daily, lisinopril 10 mg daily. Anticipate possible discharge home tomorrow. 01/05: Patient denies having any chest pain, shortness of breath, lightheadedness or dizziness. Patient has been seen by cardiology and suggested patient stay another night but he is adamant to go home. Blood pressure is on the lower side and medication adjustments were made. BUN is 42 and creatinine 1.57. Patient will be discharged home in stable condition with follow-up in the office in a week. DISCHARGE DIAGNOSES 1. Chest pain secondary to non-ST elevated myocardial infarction, status post cardiac catheterization and successful stenting of the saphenous vein graft to the OM 01/[address] Gonsalves. 2. History of coronary artery disease with previous CABG and stent placement. 3. Hyperlipidemia. 4. Hypertension. 5. Pacemaker implantation. 6. Acute kidney injury and top of chronic kidney disease stage IIIA. Patient Condition at Discharge: Stable Plan - Discharge Summary Discharge Rx Participant: No New Discharge Prescriptions: New Nitroglycerin Sl Tabs [Nitrostat] 0.4 mg SUBLINGUAL Q5M PRN #25 tab PRN Reason: Chest Pain carvediloL [Coreg] 3.125 mg PO BID-W/MEALS #60 tab Apixaban [Eliquis] 2.5 mg PO BID #60 tab carvediloL [Coreg] 3.125 mg PO BID-W/MEALS #60 tab Clopidogrel [Plavix] 75 mg PO DAILY #30 tab Clopidogrel [Plavix] 75 mg PO DAILY #60 tab Apixaban [Eliquis] 2.5 mg PO BID #60 tab Continue Ipratropium [place] 0.06%Nasal [Atrovent Nasal 0.06%] 1 spray EA NOSTRIL DAILY Atorvastatin [Lipitor] 40 mg PO DAILY Aspirin EC [Ecotrin Low Dose] 81 mg PO DAILY [place]-3/Dha/Epa/Fish Oil [Fish Oil 1,000 mg Softgel] 1 cap PO DAILY Furosemide [Lasix] 20 mg PO DAILY Glucosam/Wolfgang-Msm1/C/Balta/Bosw [Glucosamine-Chondroitin Tablet] 1 tab PO DAILY Apixaban [Eliquis] 5 mg PO BID Amiodarone HCl [Pacerone] 100 mg PO DAILY Isosorbide Mononitrate ER [Imdur] 60 mg PO BID Discontinued carvediloL [Coreg] 6.25 mg PO BID Quinapril HCl [Accupril] 20 mg PO DAILY Discharge Medication List Amiodarone HCl [Pacerone] 100 mg PO DAILY 11/19/20 [History] Apixaban [Eliquis] 5 mg PO BID 11/19/20 [History] Aspirin EC [Ecotrin Low Dose] 81 mg PO DAILY 11/19/20 [History] Atorvastatin [Lipitor] 40 mg PO DAILY 11/19/20 [History] Furosemide [Lasix] 20 mg PO DAILY 11/19/20 [History] Glucosam/Wolfgang-Msm1/C/[place]/Bosw [Glucosamine-Chondroitin Tablet] 1 tab PO DAILY 11/19/20 [History] Ipratropium [place] 0.06%Nasal [Atrovent Nasal 0.06%] 1 spray EA NOSTRIL DAILY 11/19/20 [History] Isosorbide Mononitrate ER [Imdur] 60 mg PO BID 11/19/20 [History] [place]-3/Dha/Epa/Fish Oil [Fish Oil 1,000 mg Softgel] 1 cap PO DAILY 12/31/21 [History] Nitroglycerin Sl Tabs [Nitrostat] 0.4 mg SUBLINGUAL Q5M PRN #25 tab 01/01/22 [Rx] Apixaban [Eliquis] 2.5 mg PO BID #60 tab 01/05/22 [Rx] Apixaban [Eliquis] 2.5 mg PO BID #60 tab 01/05/22 [Rx] Clopidogrel [Plavix] 75 mg PO DAILY #30 tab 01/05/22 [Rx] Clopidogrel [Plavix] 75 mg PO DAILY #60 tab 01/05/22 [Rx] carvediloL [Coreg] 3.125 mg PO BID-W/MEALS #60 tab 01/05/22 [Rx] carvediloL [Coreg] 3.125 mg PO BID-W/MEALS #60 tab 01/05/22 [Rx] Follow up Appointment(s)/Referral(s): Erwin Gonsalves MD [STAFF PHYSICIAN] - 1 Week (January 07 9:30) Carlos Enrique Messer MD [Primary Care Provider] - 1 Week (January 27 10:45) Patient Instructions/Handouts: *Surgery [facility] - After Heart Catheterization - Personal Lines Account Executive Instructions, Safe Use of Antiplatelet Medication (DC) Activity/Diet/Wound Care/Special Instructions: heart healthy diet activity limited until follow up; avoid bending/flexing at the waist repeatedly apply gentle pressure to puncture site when coughing/sneezing/laughing you may take a shower, do not take a bath or submerge puncture site in water if any bleeding is to occur apply pressure and come to the ER Discharge Disposition: HOME SELF-CARE
--- NOTE | 2022-01-06 13:35 | CDI ---
Documentation Clarification Form Date: 01/06/22 From: Shelley Evans Admit Date: 12/31/2021 12:05:00 PM Patient Name: Eamon Edouard Visit Number: [id number] Discharge Date: 01/05/2022 04:16:00 PM ATTENTION: The Clinical Documentation Specialists (CDI) and [facility] Coding Staff appreciate your assistance in clarifying documentation. Please respond to the clarification below the line at the bottom and electronically sign. The CDI & [facility] Coding staff will review the response and follow-up if needed. Please note: Queries are made part of the Legal Health Record. If you have any questions, please contact the author of this message via ITS. Dr. Carlos Enrique Messer, Your patient has the documented diagnosis of unspecified CHF per ED Note. Additional information regarding the [type, acuity] of CHF is requested. History/Risk Factors: CAD, NON-Q ME, HTN w CKD III A & heart failure, LANA, persistent a fib, ischemic cardiomyopathy Clinical Indicators: Non-Q ME, followed with LHC and PTCA. VS/Pulse OX: T 97.7, P 60, R 20, BP 138/78, O2 94 BNP: 2900 Echocardiogram Results: Left ventricular ejection fraction is estimated at 20 %. Chest X Ray: Chronic changes and cardiomegaly without new acute pulmonary process. Treatment: Lasix 20 mg PO, Accupril, Coreg In your professional opinion, can you please clarify the [acuity and type] of CHF if known? [ X] Chronic Systolic Heart Failure (reduced EF) [ ] Chronic Diastolic Heart Failure (preserved EF) [ ] Acute on Chronic Diastolic Heart Failure (preserved EF) [ ] Chronic Systolic & Diastolic Heart Failure [ ] Other, please specify [ ] Unable to determine MTDD
== END 2022-01-05 16:16 | disposition home or self-care (01) | DRG 247 ==
LOC: EC 08:16 → 3SCARD 12:05
PROVIDERS: ADMIT Internal Medicine; ATTEND Internal Medicine
PROC: B2131ZZ Fluoroscopy of Multiple Coronary Artery Bypass Grafts using Low Osmolar Contrast (ICD-10-PCS; principal; 2022-01-04 12:15)
PROC: B2111ZZ Fluoroscopy of Multiple Coronary Arteries using Low Osmolar Contrast (ICD-10-PCS; principal; 2022-01-04 12:15)
PROC: 027034Z Dilation of Coronary Artery, One Artery with Drug-eluting Intraluminal Device, Percutaneous Approach (ICD-10-PCS; principal; 2022-01-04 12:15)
PROC: 4A023N7 Measurement of Cardiac Sampling and Pressure, Left Heart, Percutaneous Approach (ICD-10-PCS; principal; 2022-01-04 12:15)
DX: I21.4 Non-ST elevation (NSTEMI) myocardial infarction (principal); I13.0 Hypertensive heart and chronic kidney disease with heart failure and stage 1 through stage 4 chronic kidney disease, or unspecified chronic kidney disease; N17.9 Acute kidney failure, unspecified; I48.19 Other persistent atrial fibrillation; I50.22 Chronic systolic (congestive) heart failure; I49.5 Sick sinus syndrome; N18.31 Chronic kidney disease, stage 3a; I25.5 Ischemic cardiomyopathy; I25.710 Atherosclerosis of autologous vein coronary artery bypass graft(s) with unstable angina pectoris; I25.110 Atherosclerotic heart disease of native coronary artery with unstable angina pectoris; Z20.822 Contact with and (suspected) exposure to COVID-19; E78.5 Hyperlipidemia, unspecified; N40.0 Benign prostatic hyperplasia without lower urinary tract symptoms; I25.2 Old myocardial infarction; Z79.01 Long term (current) use of anticoagulants; Z79.82 Long term (current) use of aspirin; Z79.899 Other long term (current) drug therapy; Z87.310 Personal history of (healed) osteoporosis fracture; Z95.1 Presence of aortocoronary bypass graft; Z95.5 Presence of coronary angioplasty implant and graft; Z95.810 Presence of automatic (implantable) cardiac defibrillator; Z87.891 Personal history of nicotine dependence; Z96.642 Presence of left artificial hip joint; Z81.1 Family history of alcohol abuse and dependence; Z80.1 Family history of malignant neoplasm of trachea, bronchus and lung; Z80.41 Family history of malignant neoplasm of ovary
CPT/HCPCS: 36415; 71046; 80048; 80053; 83735; 83880; 84484; 85025; 85610; 85730; 87502; 87635; 93005; 93306; 93459; 94760; 96374; 99285

== ENCOUNTER → 2022-03-11 | Outpatient (CLI) | payer MEDICARE ==
[2022-03-11 18:57] LABS: ALT 12 U/L (10-49); AST 26 U/L (14-35); African American GFR (CKD) 48.5 (60.0-200.0); Albumin 4.3 g/dL (3.8-4.9); Albumin/Globulin Ratio 1.87 (1.60-3.17); Alkaline Phosphatase 77 U/L (41-126); BUN/Creat Ratio 23.33 Ratio (12.00-20.00); Chloride 102 mmol/L (96-109); Chol/HDL Ratio 2.62 Ratio; Globulin 2.3 g/dL (1.6-3.3); Glucose 80 mg/dL (70-110); LDL Cholesterol,Calculated 81.3 mg/dL (0.0-131.0); Non-African American GFR(CKD) 41.8 (60.0-200.0); Potassium 4.4 mmol/L (3.5-5.5); Sodium 139 mmol/L (135-145); Total Protein 6.6 g/dL (6.2-8.2); VLDL Calculation 16.26 mg/dL (5.00-40.00)
== END | disposition home or self-care (01) ==
LOC: LABWHC1 10:49
PROVIDERS: ATTEND Internal Medicine Interventional Cardiology
DX: E78.2 Mixed hyperlipidemia (principal)
CPT/HCPCS: 36415; 80053; 80061

== ENCOUNTER → 2022-05-31 | Outpatient (CLI) | payer MEDICARE ==
[2022-05-31 23:08] LABS: African American GFR (CKD) 51.8 (60.0-200.0); Albumin 4.1 g/dL (3.8-4.9); Albumin/Globulin Ratio 1.91 (1.60-3.17); Anion Gap 10.8 mmol/L (10.00-18.00); BUN/Creat Ratio 31.2 Ratio (12.00-20.00); Blood Urea Nitrogen 44.3 mg/dL (9.0-27.0); Carbon Dioxide 25.7 mmol/L (20.0-27.5); Globulin 2.1 g/dL (1.6-3.3); Non-African American GFR(CKD) 44.7 (60.0-200.0); Potassium 4.5 mmol/L (3.5-5.5); Total Bilirubin 0.4 mg/dL (0.30-1.20); Total Protein 6.2 g/dL (6.2-8.2)
== END | disposition home or self-care (01) ==
LOC: LABWHC1 15:46
PROVIDERS: ATTEND Internal Medicine Interventional Cardiology
DX: I25.5 Ischemic cardiomyopathy (principal)
CPT/HCPCS: 36415; 80053

== ENCOUNTER → 2022-11-30 | Outpatient (CLI) | payer MEDICARE ==
[2022-11-30 15:44] LABS: ALT 16 U/L (10-49); AST 22 U/L (14-35); Albumin 4.2 d/dL (3.8-4.9); Albumin/Globulin Ratio 2.33 Ratio (1.60-3.17); Alkaline Phosphatase 79 U/L (41-126); BUN/Creat Ratio 30.14 Ratio (12.00-20.00); Blood Urea Nitrogen 42.2 mg/dL (9.0-27.0); Calcium 9.2 mg/dL (8.7-10.3); Carbon Dioxide 26.5 mmol/L (21.6-31.8); Chloride 109 mmol/L (96-109); Chol/HDL Ratio 2.35 Ratio; Globulin 1.8 d/dL (1.6-3.3); Glucose 91 mg/dL (70-110); LDL Cholesterol,Calculated 71.6 mg/dL (0.0-131.0); Potassium 4.6 mmol/L (3.5-5.5); Sodium 144 mmol/L (135-145); Total Bilirubin 0.6 mg/dL (0.3-1.2); VLDL Calculation 15.84 mg/dL (5.00-40.00)
== END | disposition home or self-care (01) ==
LOC: LABWHC1 09:00
PROVIDERS: ATTEND Internal Medicine Interventional Cardiology
DX: E78.2 Mixed hyperlipidemia (principal)
CPT/HCPCS: 36415; 80053; 80061

== ENCOUNTER → 2023-05-24 | Outpatient (CLI) | payer MEDICARE ==
[2023-05-24 16:52] LABS: ALT 18 U/L (10-49); AST 21 U/L (14-35); Albumin 4.1 g/dL (3.8-4.9); Albumin/Globulin Ratio 2.16 Ratio (1.60-3.17); Alkaline Phosphatase 68 U/L (41-126); BUN/Creat Ratio 33.69 Ratio (12.00-20.00); Blood Urea Nitrogen 43.8 mg/dL (9.0-27.0); Calcium 9.1 mg/dL (8.7-10.3); Carbon Dioxide 26.2 mmol/L (21.6-31.8); Chloride 106 mmol/L (96-109); Chol/HDL Ratio 2.49 Ratio; Globulin 1.9 g/dL (1.6-3.3); Glucose 81 mg/dL (70-110); LDL Cholesterol,Calculated 74.6 mg/dL (0.0-131.0); Potassium 4.9 mmol/L (3.5-5.5); Sodium 142 mmol/L (135-145); Total Bilirubin 0.7 mg/dL (0.3-1.2); VLDL Calculation 15.66 mg/dL (5.00-40.00)
== END | disposition home or self-care (01) ==
LOC: LABWHC1 10:53
PROVIDERS: ATTEND Internal Medicine Interventional Cardiology
DX: I25.5 Ischemic cardiomyopathy (principal); E78.2 Mixed hyperlipidemia
CPT/HCPCS: 36415; 80053; 80061

== ENCOUNTER → 2023-11-23 | Outpatient (CLI) | payer MEDICARE ==
[2023-11-23 17:29] LABS: ALT 14 U/L (10-49); AST 23 U/L (14-35); Albumin 4.3 g/dL (3.8-4.9); Albumin/Globulin Ratio 2.39 Ratio (1.60-3.17); Alkaline Phosphatase 70 U/L (41-126); BUN/Creat Ratio 26.31 Ratio (12.00-20.00); Blood Urea Nitrogen 34.2 mg/dL (9.0-27.0); Calcium 9.3 mg/dL (8.7-10.3); Carbon Dioxide 25.8 mmol/L (21.6-31.8); Chloride 104 mmol/L (96-109); Chol/HDL Ratio 2.39 Ratio; Globulin 1.8 g/dL (1.6-3.3); Glucose 89 mg/dL (70-110); LDL Cholesterol,Calculated 66.4 mg/dL (0.0-131.0); Potassium 4.5 mmol/L (3.5-5.5); Sodium 141 mmol/L (135-145); Total Bilirubin 0.7 mg/dL (0.3-1.2); Total Protein 6.1 g/dL (6.2-8.2)
== END | disposition home or self-care (01) ==
LOC: LABWHC1 10:45
PROVIDERS: ATTEND Nurse Practitioner Adult Health
DX: I10 Essential (primary) hypertension (principal); E78.2 Mixed hyperlipidemia
CPT/HCPCS: 36415; 80053; 80061

== ENCOUNTER → 2024-05-25 | Outpatient (CLI) | payer MEDICARE ==
[2024-05-25 19:03] LABS: ALT 14 U/L (10-49); AST 22 U/L (14-35); Albumin/Globulin Ratio 2.11 Ratio (1.60-3.17); Alkaline Phosphatase 75 U/L (41-126); BUN/Creat Ratio 30.23 Ratio (12.00-20.00); Blood Urea Nitrogen 39.3 mg/dL (9.0-27.0); Calcium 8.9 mg/dL (8.7-10.3); Carbon Dioxide 25.6 mmol/L (21.6-31.8); Chloride 107 mmol/L (96-109); Chol/HDL Ratio 2.53 Ratio; Globulin 1.9 g/dL (1.6-3.3); Glucose 87 mg/dL (70-110); LDL Cholesterol,Calculated 73.6 mg/dL (0.0-131.0); Potassium 4.7 mmol/L (3.5-5.5); Sodium 143 mmol/L (135-145); Total Bilirubin 0.7 mg/dL (0.3-1.2); Total Protein 5.9 g/dL (6.2-8.2); VLDL Calculation 15.22 mg/dL (5.00-40.00)
== END | disposition home or self-care (01) ==
LOC: LABWHC1 11:16
PROVIDERS: ATTEND Internal Medicine Interventional Cardiology
DX: E78.2 Mixed hyperlipidemia (principal)
CPT/HCPCS: 36415; 80053; 80061

== ENCOUNTER → 2024-11-23 | Outpatient (CLI) | payer MEDICARE ==
[2024-11-23 15:44] LABS: ALT 17 U/L (10-49); AST 23 U/L (14-35); Albumin/Globulin Ratio 2.22 Ratio (1.60-3.17); Alkaline Phosphatase 60 U/L (41-126); BUN/Creat Ratio 31.17 Ratio (12.00-20.00); Blood Urea Nitrogen 37.4 mg/dL (9.0-27.0); Calcium 8.7 mg/dL (8.7-10.3); Carbon Dioxide 25.5 mmol/L (21.6-31.8); Chloride 108 mmol/L (96-109); Chol/HDL Ratio 2.35 Ratio; Globulin 1.8 g/dL (1.6-3.3); Glucose 85 mg/dL (70-110); LDL Cholesterol,Calculated 67.5 mg/dL (0.0-131.0); Potassium 4.6 mmol/L (3.5-5.5); Sodium 142 mmol/L (135-145); Total Bilirubin 0.7 mg/dL (0.3-1.2); Total Protein 5.8 g/dL (6.2-8.2); VLDL Calculation 12.94 mg/dL (5.00-40.00)
== END | disposition home or self-care (01) ==
LOC: LABWHC1 10:56
PROVIDERS: ATTEND Internal Medicine Interventional Cardiology
DX: I25.5 Ischemic cardiomyopathy (principal); E78.2 Mixed hyperlipidemia
CPT/HCPCS: 36415; 80053; 80061